=== PATIENT | male | born 1975 | race Caucasian/White ===

== ENCOUNTER 2018-11-24 04:22 | Emergency (ER) | payer BC ==
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
[2018-11-24 05:03] LABS: BASOPHIL % 0.3 % (0.0-0.4); Basophil (Absolute #) 0.02 (0-0.4); Eosinophil % 2.9 % (0.00-5.0); Eosinophil (Absolute #) 0.19 (0-0.5); Granulocyte Absolute (ANC) 3.33 (1.4-6.9); Granulocytes % 50.7 % (36.0-66.0); Hematocrit 51.5 % (42-50); Hemoglobin 17.4 gm/dl (12.5-18.0); Lymphocyte (Absolute #) 2.13 (1.0-4.6); Lymphocytes % 32.5 % (24.0-44.0); Mean Cell Volume 88.3 fl (78-100); Mean Corpuscular Hemoglobin 29.8 pg (26-32); Mean Corpuscular Hgb Concent. 33.8 g/dl (32-36); Mean Platelet Volume 10.5 fl (6-9.5); Monocyte (Absolute #) 0.89 (0.0-1.3); Monocytes % 13.6 % (0.0-12.0); Platelet Count 183 K/mm3 (150-450); Red Blood Count 5.83 M/mm3 (4.1-5.6); Red Cell Distribution Width 14.6 % (11.5-14.0); White Blood Count 6.6 K/mm3 (4.0-10.5)
[2018-11-24 05:16] LABS: ALKALINE PHOSPHATASE 74 U/L (38-126); ANION GAP 12.6 MEQ/L (5-15); BLOOD UREA NITROGEN 14 mg/dL (9-20); CHLORIDE 105 mmol/L (98-107); Calcium 9.1 mg/dL (8.4-10.2); Carbon Dioxide 26 mmol/L (22-30); Glucose 101 mg/dL (74-106); MAGNESIUM 1.8 mg/dL (1.6-2.3); Potassium 3.8 mmol/L (3.5-5.1); SGOT/AST 37 U/L (17-59); SGPT/ALT 39 U/L (0-50); SODIUM 140 mmol/L (137-145); Total Protein 7.2 g/dL (6.3-8.2)
[2018-11-24] MEDS ORDERED: Zofran 4 MG/2 ML VIAL ONE (05:19)
[2018-11-24] MEDS ORDERED: MORPHINE SULFATE 2 MG INJ ONE ×2 (05:19→05:33)
[2018-11-24] MEDS ORDERED: MORPHINE SULFATE 2 MG INJ IV ONE ×2 (05:19→05:32)
[2018-11-24] MEDS ORDERED: Nitrostat 0.4 MG (ED) SL ONE ×2 (05:19→05:29)
[2018-11-24] MEDS ORDERED: Zofran 4 MG/2 ML VIAL IV ONE (05:23)
[2018-11-24 08:40] VITALS: O2SAT 97
[2018-11-24 08:58] VITALS: BP 116/74; PULSE 79
--- NOTE | 2018-11-25 08:43 | XRAY ---
Exam: AP upright portable chest film from 11/24/2018. Comparison: Two-view chest series from 12/25/2017. Indication: Chest pain, cough. Findings: The current film was obtained in a lordotic projection. The lungs are well expanded. The transverse heart size is normal. The sofi and mediastinal structures appear intact. No air space infiltrates, vascular congestion, pneumothorax, or pleural fluid is seen. No acute osseous process is seen. EKG leads are seen in place. Impression: 1. No acute cardiopulmonary process is seen, no change from 12/25/2017.
== END 2018-11-24 09:06 | disposition home or self-care (01) ==
LOC: ED 04:22
DX: M54.2 Cervicalgia (principal)
CPT/HCPCS: 36000; 36415; 71045; 80053; 83735; 84484; 85025; 85379; 93005; 96374; 96375; 96376; 99284; 99291; J2270; J2405; A9270-GY

== ENCOUNTER 2020-02-15 19:57 | Emergency (ER) | payer BC ==
[2020-02-15] MEDS ORDERED: MORPHINE SULFATE 4 MG INJ IV ONE (20:10)
[2020-02-15] MEDS ORDERED: Zofran 4 MG/2 ML VIAL IV ONE (20:10)
[2020-02-15] MEDS ORDERED: BABY ASPIRIN 81 MG CHEW PO ONE (20:10)
--- NOTE | 2020-02-15 20:10 | ERPHSYRPT ---
- History of Present Illness Time Seen by Provider: 02/15/20 20:09 Historian: patient Exam Limitations: no limitations Physician History: This is a 44-year-old overweight white male who has a history of hypertension and who has a known thoracic aortic aneurysm. He presents with sharp pain in his chest which radiates into his back. The pain in his back is more signifi cant now than earlier. Patient does not have a fever. He does not have significant shortness of breath. He has no abdominal pain. Timing/Duration: today Quality: stabbing Location: central Chest Pain Radiation: back Severity of Pain-Max: mild Severity of Pain-Current: mild Modifying Factors: Improves With: nothing Associated Symptoms: denies symptoms Prior Chest Pain/Cardiac Workup: echocardiography, stress test Nitro Today/Relief: no nitro taken today Aspirin Treatment Today: 81 mg x 1 Allergies/Adverse Reactions: No Known Drug Allergies Allergy (Unverified 02/15/20 20:17) Home Medications: Aspirin 81 gm Chew [Baby Aspirin 81 mg Chew] 1 tab PO HS 11/24/18 [History] Levothyroxine Sodium 50 Mcg [Synthroid 50 Mcg] 1 tab PO HS 11/24/18 [History] Loratadine 10 mg [Claritin 10 mg] 1 tab PO HS 11/24/18 [History] Multivitamin [Multivitamins] 1 tab PO HS 11/24/18 [History] Sertraline HCl 100 mg PO HS 11/24/18 [History] Testosterone Cypionate, Micro [Testosterone Cypionate Micro] 140 mg IM WEEKLY 11/24/18 [History] Atorvastatin Calcium 50 mg PO DAILY 02/15/20 [History] Buspirone HCl 10 mg PO BID 02/15/20 [History] Hx Tetanus, Diphtheria Vaccination/Date Given: No Hx Influenza Vaccination/Date Given: Yes Hx Pneumococcal Vaccination/Date Given: No Travel Risk - International Travel Have you traveled outside of the country in past 3 weeks: No - Coronavirus Screening Are you exhibiting any of the following symptoms?: No Close contact with a COVID-19 positive Pt in past 14-21 Days: No - Review of Systems Constitutional: No Symptoms Eyes: No Symptoms Ears, Nose, & Throat: No Symptoms Respiratory: No Symptoms Cardiac: Chest Pain Abdominal/Gastrointestinal: No Symptoms Genitourinary Symptoms: No Symptoms Musculoskeletal: Back Pain Skin: No Symptoms Neurological: No Symptoms Psychological: No Symptoms Endocrine: No Symptoms Hematologic/Lymphatic: No Symptoms Immunological/Allergic: No Symptoms All Other Systems: Reviewed and Negative - Past Medical History Pertinent Past Medical History: Yes Neurological History: No Pertinent History ENT History: No Pertinent History Cardiac History: High Cholesterol Respiratory History: No Pertinent History Endocrine Medical History: Hypothyroidism Musculoskeletal History: No Pertinent History GI Medical History: No Pertinent History History: No Pertinent History Psycho-Social History: Anxiety Male Reproductive Disorders: No Pertinent History Other Medical History: Thoracic Aortic Anerysim. Nodule on lungs - Past Surgical History Past Surgical History: Yes Neuro Surgical History: No Pertinent History Cardiac: Cardiac Catheterization Respiratory: No Pertinent History Gastrointestinal: Appendectomy Genitourinary: No Pertinent History Musculoskeletal: Orthopedic Surgery Male Surgical History: No Pertinent History Other Surgical History: Rapid plasely expansion, Right ankle surgery. - Social History Smoking Status: Never smoker Exposure to second hand smoke: No Drug Use: none Patient Lives Alone: No - Nursing Vital Signs Nursing Vital Signs: Initial Vital Signs Temperature 98.3 F 02/15/20 20:06 Pulse Rate 90 02/15/20 20:06 Respiratory Rate 20 02/15/20 20:06 Blood Pressure 142/104 02/15/20 20:06 O2 Sat by Pulse Oximetry 99 02/15/20 20:06 Pain Scale Pain Intensity [Back] 4 Pain Intensity 4 - Physical Exam General Appearance: no apparent distress, alert, anxiety, obese Eye Exam: PERRL/EOMI, eyes nml inspection Ears, Nose, Throat Exam: normal ENT inspection, moist mucous membranes Neck Exam: normal inspection, non-tender, supple, full range of motion Respiratory Exam: normal breath sounds, chest tenderness, lungs clear, No respiratory distress, No airway intact Cardiovascular Exam: regular rate/rhythm, normal heart sounds, normal peripheral pulses Gastrointestinal/Abdomen Exam: soft, normal bowel sounds, No tenderness Rectal Exam: not done Back Exam: normal inspection, normal range of motion, No CVA tenderness, No vertebral tenderness Extremity Exam: normal inspection, normal range of motion, pelvis stable Neurologic Exam: alert, oriented x 3, cooperative, exchange engineer II-XII nml as tested, normal mood/affect, nml cerebellar function, nml station & gait, sensation nml Skin Exam: normal color, warm, dry Lymphatic Exam: No adenopathy SpO2 Interpretation: normal SpO2: 99 O2 Delivery: Room Air - Course Nursing assessment & vital signs reviewed: Yes EKG Interpreted by Me: RATE (79), Sinus Rhythm, NORMAL AXIS, NORMAL INTERVALS, NORMAL QRS, NORMAL ST-T, Other (There are no acute ischemic changes on this EKG. There are no changes when compared to EKG dated 11/24/2018) Ordered Tests: Active Orders 24 hr Category Date Time Status Dynamite Reclaimer STAT Care 02/15/20 20:11 Active IV Insertion STAT Care 02/15/20 20:10 Active CHEST WITH CONTRAST [CT] Stat Exams 02/15/20 20:10 Ordered CBC W DIFF Stat Lab 02/15/20 20:40 Completed CMP Stat Lab 02/15/20 20:40 Completed D-DIMER QUANTITATIVE Stat Lab 02/15/20 20:40 Completed NT PRO BNP Stat Lab 02/15/20 20:40 Completed PROTIME WITH INR Stat Lab 02/15/20 20:40 Completed TROPONIN Q3H Lab 02/15/20 20:40 Completed TROPONIN Q3H Lab 02/15/20 23:15 Ordered TROPONIN Q3H Lab 02/16/20 02:15 Ordered TROPONIN Q3H Lab 02/16/20 05:15 Ordered TROPONIN Q3H Lab 02/16/20 08:15 Ordered Medication Summary Generic Name Dose Route Start Last Admin Trade Name Freq PRN Reason Stop Dose Admin Sodium Chloride 1,000 mls @ 100 mls/hr 02/15/20 20:15 02/15/20 21:39 Sodium Chloride 0.9% 1000 Ml IV 03/16/20 20:14 100 mls/hr .Q10H DANIEL Administration Discontinued Medications Generic Name Dose Route Start Last Admin Trade Name Freq PRN Reason Stop Dose Admin Aspirin 324 mg 02/15/20 20:10 02/15/20 20:33 Baby Aspirin 81 Mg Chew PO 02/15/20 20:11 324 mg STAT ONE Administration Morphine Sulfate 4 mg 02/15/20 20:10 02/15/20 20:32 Morphine Sulfate 4 Mg Inj IV 02/15/20 20:11 4 mg STAT ONE Administration Morphine Sulfate Confirm 02/15/20 20:28 Morphine Sulfate 4 Mg Inj Administered 02/15/20 20:29 Dose 4 mg .ROUTE .STK-MED ONE Ondansetron HCl 4 mg 02/15/20 20:10 02/15/20 20:32 Zofran 4 Mg/2 Ml Vial IV 02/15/20 20:11 4 mg STAT ONE Administration Ondansetron HCl Confirm 02/15/20 20:28 Zofran 4 Mg/2 Ml Vial Administered 02/15/20 20:29 Dose 4 mg .ROUTE .STK-MED ONE Lab/Rad Data: Laboratory Result Diagrams 02/15/20 20:40 02/15/20 20:40 Laboratory Results 02/15/20 02/15/20 02/15/20 Range/Units 20:40 20:40 20:40 WBC (4.0-10.5) K/mm3 RBC (4.1-5.6) M/mm3 Hgb (12.5-18.0) gm/dl Hct (42-50) % MCV (78-100) fl MCH (26-32) pg MCHC (32-36) g/dl RDW (11.5-14.0) % Plt Count (150-450) K/mm3 MPV (7.5-11.0) fl Gran % (36.0-66.0) % Eos # (Auto) (0-0.5) Absolute Lymphs (auto) (1.0-4.6) Absolute Monos (auto) (0.0-1.3) Lymphocytes % (24.0-44.0) % Monocytes % (0.0-12.0) % Eosinophils % (0.00-5.0) % Basophils % (0.0-0.4) % Absolute Granulocytes (1.4-6.9) Basophils # (0-0.4) PT 11.8 (8.83-12.87) SECONDS INR 1.04 (0.8-3.0) D-Dimer 280 (215-500) ng/mL Sodium 137 (137-145) mmol/L Potassium 3.8 (3.5-5.1) mmol/L Chloride 104 (98-107) mmol/L Carbon Dioxide 25 (22-30) mmol/L Anion Gap 11.0 (5-15) MEQ/L BUN 12 (9-20) mg/dL Creatinine 0.91 (0.66-1.25) mg/dL Estimated GFR > 60.0 ML/MIN Glucose 108 H (74-106) mg/dL Calcium 9.4 (8.4-10.2) mg/dL Total Bilirubin 0.90 (0.2-1.3) mg/dL AST 40 (17-59) U/L ALT 50 (0-50) U/L Alkaline Phosphatase 73 (38-126) U/L Troponin I < 0.012 (0.000-0.034) ng/mL NT-Pro-B Natriuret Pep 22.0 (0-450) pg/mL Serum Total Protein 7.4 (6.3-8.2) g/dL Albumin 4.2 (3.5-5.0) g/dL 02/14/ Range/Units 20:40 WBC 8.3 (4.0-10.5) K/mm3 RBC 6.08 H (4.1-5.6) M/mm3 Hgb 18.0 (12.5-18.0) gm/dl Hct 52.8 H (42-50) % MCV 86.8 (78-100) fl MCH 29.6 (26-32) pg MCHC 34.1 (32-36) g/dl RDW 14.4 H (11.5-14.0) % Plt Count 204 (150-450) K/mm3 MPV 11.4 H (7.5-11.0) fl Gran % 57.3 (36.0-66.0) % Eos # (Auto) 0.18 (0-0.5) Absolute Lymphs (auto) 2.44 (1.0-4.6) Absolute Monos (auto) 0.91 (0.0-1.3) Lymphocytes % 29.4 (24.0-44.0) % Monocytes % 11.0 (0.0-12.0) % Eosinophils % 2.2 (0.00-5.0) % Basophils % 0.1 (0.0-0.4) % Absolute Granulocytes 4.75 (1.4-6.9) Basophils # 0.01 (0-0.4) PT (8.83-12.87) SECONDS INR (0.8-3.0) D-Dimer (215-500) ng/mL Sodium (137-145) mmol/L Potassium (3.5-5.1) mmol/L Chloride (98-107) mmol/L Carbon Dioxide (22-30) mmol/L Anion Gap (5-15) MEQ/L BUN (9-20) mg/dL Creatinine (0.66-1.25) mg/dL Estimated GFR ML/MIN Glucose (74-106) mg/dL Calcium (8.4-10.2) mg/dL Total Bilirubin (0.2-1.3) mg/dL AST (17-59) U/L ALT (0-50) U/L Alkaline Phosphatase (38-126) U/L Troponin I (0.000-0.034) ng/mL NT-Pro-B Natriuret Pep (0-450) pg/mL Serum Total Protein (6.3-8.2) g/dL Albumin (3.5-5.0) g/dL - Progress Progress: improved, re-examined Air Movement: good Progress Note: 02/15/20 22:12 CAT scan of the chest with contrast shows negative pulmonary emboli and negative aneurysm. There is incidental 9 mm right lower lobe calcified nodule that has persisted. This was compared to a CT of the chest with contrast from [facility] on 11/04/2019. There are no new/acute findings Blood Culture(s) Obtained: No Antibiotics given: No Counseled pt/family regarding: lab results, diagnosis, need for follow-up, rad results - Departure Departure Disposition: Home Clinical Impression: Chest pain, non-cardiac, Back pain Condition: Stable Critical Care Time: No Referrals: ROSA TATUM [Primary Care Provider] - Additional Instructions: Take your medication as prescribed. Follow-up with your hand splitter and [facility] care physician as needed.
[2020-02-15] MEDS ORDERED: Sodium Chloride 0.9% 1000 ML 1,000 ML IV SCH (20:15)
[2020-02-15] MEDS ORDERED: Zofran 4 MG/2 ML VIAL ONE (20:28)
[2020-02-15] MEDS ORDERED: MORPHINE SULFATE 4 MG INJ ONE (20:28)
[2020-02-15] MEDS ORDERED: Sodium Chloride 0.9% 1000 ML 1,000 ML ONE (20:46)
[2020-02-15 20:58] LABS: Absolute Neutrophil Ct (ANC) 4.75 (1.4-6.9); BASOPHIL % 0.1 % (0.0-0.4); Basophil (Absolute #) 0.01 (0-0.4); Eosinophil % 2.2 % (0.00-5.0); Eosinophil (Absolute #) 0.18 (0-0.5); Hematocrit 52.8 % (42-50); Lymphocyte (Absolute #) 2.44 (1.0-4.6); Lymphocytes % 29.4 % (24.0-44.0); Mean Cell Volume 86.8 fl (78-100); Mean Corpuscular Hemoglobin 29.6 pg (26-32); Mean Corpuscular Hgb Concent. 34.1 g/dl (32-36); Mean Platelet Volume 11.4 fl (7.5-11.0); Monocyte (Absolute #) 0.91 (0.0-1.3); Neutrophil % 57.3 % (36.0-66.0); Platelet Count 204 K/mm3 (150-450); Red Blood Count 6.08 M/mm3 (4.1-5.6); Red Cell Distribution Width 14.4 % (11.5-14.0); White Blood Count 8.3 K/mm3 (4.0-10.5)
[2020-02-15 21:08] LABS: INR 1.04 (0.8-3.0); PROTIME 11.8 SECONDS (8.83-12.87)
[2020-02-15 21:13] LABS: ALBUMIN 4.2 g/dL (3.5-5.0); ALKALINE PHOSPHATASE 73 U/L (38-126); BLOOD UREA NITROGEN 12 mg/dL (9-20); CHLORIDE 104 mmol/L (98-107); Calcium 9.4 mg/dL (8.4-10.2); Carbon Dioxide 25 mmol/L (22-30); Creatinine 1 0.91 mg/dL (0.66-1.25); EST GLOMERULAR FILTRATION RATE > 60.0 ML/MIN; Glucose 108 mg/dL (74-106); Potassium 3.8 mmol/L (3.5-5.1); SGOT/AST 40 U/L (17-59); SGPT/ALT 50 U/L (0-50); SODIUM 137 mmol/L (137-145); Total Protein 7.4 g/dL (6.3-8.2)
[2020-02-15 21:19] VITALS: PULSE 84
[2020-02-15 22:33] VITALS: BP 105/63; O2SAT 96
--- NOTE | 2020-02-16 08:49 | XRAY ---
Indication: Chest/thoracic pain. Multiple contiguous axial images obtained through the chest using 100 cc Isovue 370 contrast and PE protocol. Comparison: Outside CTA chest from [facility] dated November 04, 2019. There is good opacification of the pulmonary arteries to include the lobar and segmental branches. No pulmonary embolus. Heart is not enlarged. Aorta is again normal in course and caliber without aneurysm/dissection. No pathologic mediastinal/hilar lymphadenopathy. Lungs inflated with stable 9 mm posterior right lower lobe subpleural noncalcified nodule. No new pulmonary mass/nodule, infiltrate, consolidation, or effusion. Bony thorax intact again with minimal degenerative changes throughout the spine. Limited upper abdomen again demonstrates mild fatty liver, 13 cm splenomegaly, and scattered colonic diverticulosis. Impression: 1. Negative pulmonary embolus/thoracic aneurysm. No acute cardiopulmonary abnormalities. 2. Stable posterior right lower lobe noncalcified nodule possibly granulomatous in this demographic. Consider follow-up per Fleischner guidelines. 3. Again incidental fatty liver, splenomegaly, and colonic diverticulosis.
== END 2020-02-15 22:33 | disposition home or self-care (01) ==
LOC: ED 19:57
DX: R07.89 Other chest pain (principal); M54.6 Pain in thoracic spine; I10 Essential (primary) hypertension; I71.2 Thoracic aortic aneurysm, without rupture; R91.8 Other nonspecific abnormal finding of lung field
CPT/HCPCS: 36000; 36415; 71260; 80053; 83880; 84484; 85025; 85379; 85610; 93041; 96374; 96375; 99284; J2270; J2405; A9270-GY

== ENCOUNTER 2020-08-23 23:19 | Emergency (ER) | payer BC ==
[2020-08-23 23:51] LABS: Absolute Neutrophil Ct (ANC) 4.56 (1.4-6.9); BASOPHIL % 0.1 % (0.0-0.4); Basophil (Absolute #) 0.01 (0-0.4); Eosinophil % 1.9 % (0.00-5.0); Eosinophil (Absolute #) 0.13 (0-0.5); Hematocrit 49.4 % (42-50); Hemoglobin 16.7 gm/dl (12.5-18.0); Lymphocyte (Absolute #) 1.38 (1.0-4.6); Lymphocytes % 19.8 % (24.0-44.0); Mean Cell Volume 85.3 fl (78-100); Mean Corpuscular Hemoglobin 28.8 pg (26-32); Mean Corpuscular Hgb Concent. 33.8 g/dl (32-36); Mean Platelet Volume 10.9 fl (7.5-11.0); Monocyte (Absolute #) 0.89 (0.0-1.3); Monocytes % 12.8 % (0.0-12.0); Neutrophil % 65.4 % (36.0-66.0); Platelet Count 189 K/mm3 (150-450); Red Blood Count 5.79 M/mm3 (4.1-5.6); Red Cell Distribution Width 15.3 % (11.5-14.0)
[2020-08-24 00:08] LABS: ALBUMIN 4.1 g/dL (3.5-5.0); ALKALINE PHOSPHATASE 66 U/L (38-126); ANION GAP 12.4 MEQ/L (5-15); BLOOD UREA NITROGEN 12 mg/dL (9-20); CHLORIDE 101 mmol/L (98-107); Calcium 9.3 mg/dL (8.4-10.2); Carbon Dioxide 28 mmol/L (22-30); Creatinine 1 1.05 mg/dL (0.66-1.25); EST GLOMERULAR FILTRATION RATE > 60.0 ML/MIN; Glucose 124 mg/dL (74-106); MAGNESIUM 1.9 mg/dL (1.6-2.3); Potassium 3.6 mmol/L (3.5-5.1); SGOT/AST 34 U/L (17-59); SGPT/ALT 30 U/L (0-50); SODIUM 137 mmol/L (137-145); Total Protein 6.8 g/dL (6.3-8.2)
--- NOTE | 2020-08-24 00:21 | ERPHSYRPT ---
- History of Present Illness Time Seen by Provider: 08/23/20 23:22 Source: patient Exam Limitations: no limitations Patient Subjective Stated Complaint: pt states, "I was laying in bed and I became sob, my throat felt really tight". Triage Nursing Assessment: pt c/o sob and tightness in the throat area, states, "it feels like bubbles up in my neck area". Pt states, "I was laying down getting ready to go to bed and it hit me all at once". Lungs clear, ant and post, pt is moving air, O2 sats 99% on rm air. Pt's throat/voice sounds scratchy, pt denies any sore throat, denies any chest pain. Pt has a dry, hacky intermittent cough. Physician History: Patient is a 45-year-old male presents to our ED with complaints of shortness of breath. Patient states he was lying in bed when symptoms started. Patient states his throat began to feel tight as a shortness of breath develop. Patient describes her symptoms as bubbles in his throat. Patient admits to a dry intermittent cough. No sore throat. No allergic reactions. Patient has no known allergies. No hives. No rash. No nausea or vomiting. No chest pain or shortness of breath. Symptoms are mild to moderate in intensity. No specific worsening improving factors. Patient voices no other complaints or concerns at this time. Timing/Duration: today Severity: moderate Modifying Factors: Improves With: nothing Associated Symptoms: shortness of breath, cough, No fever, No rash, No syncope Allergies/Adverse Reactions: No Known Drug Allergies Allergy (Verified 08/23/20 23:30) Home Medications: Aspirin 81 gm Chew [Baby Aspirin 81 mg Chew] 1 tab PO DAILY 11/24/18 [History] Levothyroxine Sodium 50 Mcg [Synthroid 50 Mcg] 1 tab PO HS 11/24/18 [History] Loratadine 10 mg [Claritin 10 mg] 1 tab PO HS 11/24/18 [History] Multivitamin [Multivitamins] 1 tab PO DAILY 11/24/18 [History] Sertraline HCl 100 mg PO HS 11/24/18 [History] Testosterone Cypionate, Micro [Testosterone Cypionate Micro] 140 mg IM WEEKLY 11/24/18 [History] Atorvastatin Calcium 50 mg PO HS 02/15/20 [History] Buspirone HCl 10 mg PO BID 02/15/20 [History] Hx Tetanus, Diphtheria Vaccination/Date Given: Yes Hx Influenza Vaccination/Date Given: Yes Hx Pneumococcal Vaccination/Date Given: No Immunizations Up to Date: Yes Travel Risk - International Travel Have you traveled outside of the country in past 3 weeks: No - Coronavirus Screening Are you exhibiting any of the following symptoms?: Yes Symptoms: Shortness of Breath Close contact with a COVID-19 positive Pt in past 14-21 Days: No - Vaccine Status Have you recieved a Covid-19 vaccination: No - Review of Systems Constitutional: No Symptoms, No Fever, No Chills Eyes: No Symptoms Ears, Nose, & Throat: No Symptoms Respiratory: No Symptoms, No Cough, No Dyspnea Cardiac: No Symptoms, No Chest Pain, No Edema, No Syncope Abdominal/Gastrointestinal: No Symptoms, No Abdominal Pain, No Nausea, No Vomiting, No Diarrhea Genitourinary Symptoms: No Symptoms, No Dysuria Musculoskeletal: No Symptoms, No Back Pain, No Neck Pain Skin: No Symptoms, No Rash Neurological: No Symptoms, No Dizziness, No Focal Weakness, No Sensory Changes Psychological: No Symptoms Endocrine: No Symptoms Hematologic/Lymphatic: No Symptoms Immunological/Allergic: No Symptoms All Other Systems: Reviewed and Negative - Past Medical History Pertinent Past Medical History: Yes Neurological History: No Pertinent History ENT History: No Pertinent History Cardiac History: High Cholesterol Respiratory History: No Pertinent History Endocrine Medical History: Hypothyroidism Musculoskeletal History: No Pertinent History GI Medical History: No Pertinent History History: No Pertinent History Psycho-Social History: Anxiety, Depression Male Reproductive Disorders: No Pertinent History Other Medical History: Thoracic Aortic Anerysim. Nodule on lungs - Past Surgical History Past Surgical History: Yes Neuro Surgical History: No Pertinent History Cardiac: Cardiac Catheterization Respiratory: No Pertinent History Gastrointestinal: Appendectomy Genitourinary: No Pertinent History Musculoskeletal: Orthopedic Surgery Male Surgical History: No Pertinent History Other Surgical History: Rapid plasely expansion, Right ankle surgery. - Social History Smoking Status: Never smoker Exposure to second hand smoke: Yes Drug Use: none Patient Lives Alone: No - Nursing Vital Signs Nursing Vital Signs: Initial Vital Signs Temperature 98.2 F 08/23/20 23:20 Pulse Rate 106 H 08/23/20 23:20 Respiratory Rate 24 08/23/20 23:20 Blood Pressure 108/82 08/23/20 23:20 O2 Sat by Pulse Oximetry 99 08/23/20 23:20 Pain Scale Pain Intensity 0 - Physical Exam General Appearance: no apparent distress, alert Eye Exam: PERRL/EOMI, eyes nml inspection Ears, Nose, Throat Exam: normal ENT inspection, TMs normal, pharynx normal, moist mucous membranes Neck Exam: normal inspection, non-tender, supple, full range of motion Respiratory Exam: normal breath sounds, lungs clear, airway intact, No respiratory distress, No diminished breath sounds, No accessory muscle use Cardiovascular Exam: regular rate/rhythm, normal heart sounds, normal peripheral pulses Gastrointestinal/Abdomen Exam: soft, normal bowel sounds, No tenderness, No mass Back Exam: normal inspection, normal range of motion, No CVA tenderness, No vertebral tenderness Extremity Exam: normal inspection, normal range of motion, pelvis stable Neurologic Exam: alert, oriented x 3, cooperative, normal mood/affect, nml cerebellar function, nml station & gait, sensation nml, No motor deficits Skin Exam: normal color, warm, dry, No rash Lymphatic Exam: No adenopathy SpO2 Interpretation: normal SpO2: 99 O2 Delivery: Room Air - Course Nursing assessment & vital signs reviewed: Yes EKG Interpreted by Me: RATE (103), Sinus Tach, NORMAL AXIS, NORMAL INTERVALS - Radiology Exams Other X-ray Interpretation: Teleradiologist Report (Soft tissue of the neck appears to be within normal limits. Airway appears patent. Normal epiglottis.) Chest X-ray Interpretation: Teleradiologist Report (X-ray chest negative for infiltrate. No consolidation. No pleural effusion no pneumothorax no cardiomegaly) Ordered Tests: Active Orders 24 hr Category Date Time Status Diagnostic Technologist STAT Care 08/23/20 23:31 Active EKG-ER Only STAT Care 08/23/20 23:30 Active IV Insertion STAT Care 08/23/20 23:30 Active Pulse Oximetry (ED) STAT Care 08/23/20 23:30 Active CHEST 1 VIEW (PORTABLE) Stat Exams 08/24/20 00:28 Taken NECK SOFT TISSUE Stat Exams 08/24/20 00:30 Taken CBC W DIFF Stat Lab 08/23/20 23:30 Completed CMP Stat Lab 08/23/20 23:30 Completed D-DIMER QUANTITATIVE Stat Lab 08/23/20 23:30 Completed MAGNESIUM Stat Lab 08/23/20 23:30 Completed TROPONIN Q3H Lab 08/23/20 23:30 Completed TROPONIN Q3H Lab 08/24/20 02:45 Ordered TROPONIN Q3H Lab 08/24/20 05:45 Ordered TROPONIN Q3H Lab 08/24/20 08:45 Ordered TROPONIN Q3H Lab 08/24/20 11:45 Ordered Flutter Therapy UD RT 08/24/20 00:57 Active Respiratory Therapy Assessment DAILY RT 08/24/20 00:52 Active Medication Summary Discontinued Medications Generic Name Dose Route Start Last Admin Trade Name Freq PRN Reason Stop Dose Admin Albuterol/Ipratropium 3 ml 08/24/20 00:26 08/24/20 00:49 Duoneb 0.5-3 Mg/3 Ml Neb IH 08/24/20 00:27 3 ml STAT ONE Administration Albuterol/Ipratropium Confirm 08/24/20 00:32 Duoneb 0.5-3 Mg/3 Ml Neb Administered 08/24/20 00:33 Dose 3 ml IH .STK-MED ONE Methylprednisolone Sodium Succinate 125 mg 08/24/20 00:26 08/24/20 00:29 Solu-Medrol 125 Mg IV 08/24/20 00:27 125 mg STAT ONE Administration Methylprednisolone Sodium Succinate Confirm 08/24/20 00:28 Solu-Medrol 125 Mg Administered 08/24/20 00:29 Dose 125 mg .ROUTE .STK-MED ONE Lab/Rad Data: Laboratory Result Diagrams 08/23/20 23:30 08/23/20 23:30 Laboratory Results 08/23/20 08/23/20 08/23/20 Range/Units 23:30 23:30 23:30 WBC (4.0-10.5) K/mm3 RBC (4.1-5.6) M/mm3 Hgb (12.5-18.0) gm/dl Hct (42-50) % MCV (78-100) fl MCH (26-32) pg MCHC (32-36) g/dl RDW (11.5-14.0) % Plt Count (150-450) K/mm3 MPV (7.5-11.0) fl Gran % (36.0-66.0) % Eos # (Auto) (0-0.5) Absolute Lymphs (auto) (1.0-4.6) Absolute Monos (auto) (0.0-1.3) Lymphocytes % (24.0-44.0) % Monocytes % (0.0-12.0) % Eosinophils % (0.00-5.0) % Basophils % (0.0-0.4) % Absolute Granulocytes (1.4-6.9) Basophils # (0-0.4) D-Dimer 377 (215-500) ng/mL Sodium 137 (137-145) mmol/L Potassium 3.6 (3.5-5.1) mmol/L Chloride 101 (98-107) mmol/L Carbon Dioxide 28 (22-30) mmol/L Anion Gap 12.4 (5-15) MEQ/L BUN 12 (9-20) mg/dL Creatinine 1.05 (0.66-1.25) mg/dL Estimated GFR > 60.0 ML/MIN Glucose 124 H (74-106) mg/dL Calcium 9.3 (8.4-10.2) mg/dL Magnesium 1.9 (1.6-2.3) mg/dL Total Bilirubin 1.10 (0.2-1.3) mg/dL AST 34 (17-59) U/L ALT 30 (0-50) U/L Alkaline Phosphatase 66 (38-126) U/L Troponin I < 0.012 (0.000-0.034) ng/mL Serum Total Protein 6.8 (6.3-8.2) g/dL Albumin 4.1 (3.5-5.0) g/dL 08/23/20 Range/Units 23:30 WBC 7.0 (4.0-10.5) K/mm3 RBC 5.79 H (4.1-5.6) M/mm3 Hgb 16.7 (12.5-18.0) gm/dl Hct 49.4 (42-50) % MCV 85.3 (78-100) fl MCH 28.8 (26-32) pg MCHC 33.8 (32-36) g/dl RDW 15.3 H (11.5-14.0) % Plt Count 189 (150-450) K/mm3 MPV 10.9 (7.5-11.0) fl Gran % 65.4 (36.0-66.0) % Eos # (Auto) 0.13 (0-0.5) Absolute Lymphs (auto) 1.38 (1.0-4.6) Absolute Monos (auto) 0.89 (0.0-1.3) Lymphocytes % 19.8 L (24.0-44.0) % Monocytes % 12.8 H (0.0-12.0) % Eosinophils % 1.9 (0.00-5.0) % Basophils % 0.1 (0.0-0.4) % Absolute Granulocytes 4.56 (1.4-6.9) Basophils # 0.01 (0-0.4) D-Dimer (215-500) ng/mL Sodium (137-145) mmol/L Potassium (3.5-5.1) mmol/L Chloride (98-107) mmol/L Carbon Dioxide (22-30) mmol/L Anion Gap (5-15) MEQ/L BUN (9-20) mg/dL Creatinine (0.66-1.25) mg/dL Estimated GFR ML/MIN Glucose (74-106) mg/dL Calcium (8.4-10.2) mg/dL Magnesium (1.6-2.3) mg/dL Total Bilirubin (0.2-1.3) mg/dL AST (17-59) U/L ALT (0-50) U/L Alkaline Phosphatase (38-126) U/L Troponin I (0.000-0.034) ng/mL Serum Total Protein (6.3-8.2) g/dL Albumin (3.5-5.0) g/dL - Progress Progress: improved Counseled pt/family regarding: lab results, diagnosis, need for follow-up, rad results - Departure Departure Disposition: Home Clinical Impression: Throat fullness, Cough Condition: Stable Critical Care Time: No Referrals: ROSA TATUM [Primary Care Provider] - Additional Instructions: Discharge/Care Plan LINDSEYAIYANA VICKERS was seen on 08/24/20 in the Emergency Room. The patient was counseled regarding Diagnosis,Lab results, Imaging studies, need for follow up and when to return to the Emergency Room. Prescriptions given: Discharge Note I have spoken with the patient and/or caregivers. I have explained the patient's condition, diagnosis and treatment plan based on the information available to me at this time. I have answered the patient's and/or caregiver's questions and addressed any concerns. The patient and/or caregivers have as good understanding of the patient's diagnosis, condition and treatment plan as can be expected at this point. The vital signs have been stable. The patient's condition is stable and appropriate for discharge from the emergency department. The patient will pursue further outpatient evaluation with the primary care physician or other designated or consulting physician as outlined in the discharge instructions. The patient and/or caregivers are agreeable to this plan of care and follow-up instructions have been explained in detail. The patient and/or caregivers have received these instruction. The patient/and or caregivers are aware that any significant change in condition or worsening of symptoms should prompt an immediate return to this or the closest emergency department or call 911. Prescriptions: Prednisone 10 mg [Deltasone 10 mg] 50 mg PO DAILY 3 Days #15 tablet Epinephrine [Epipen] 0.3 mg IM DAILY 1 Days #2 ml
[2020-08-24] MEDS ORDERED: DUONEB 0.5-3 MG/3 ml Neb IH ONE ×2 (00:26→00:32)
[2020-08-24] MEDS ORDERED: solu-MEDROL 125 MG IV ONE (00:26)
[2020-08-24] MEDS ORDERED: solu-MEDROL 125 MG ONE (00:28)
[2020-08-24 02:52] VITALS: BP 96/60; PULSE 97; O2SAT 95
--- NOTE | 2020-08-24 09:11 | XRAY ---
Indication: Short of breath. Comparison: November 24, 2018. Portable chest again demonstrates normal heart and lungs. Bony thorax intact again with minimal degenerative changes. No new/acute findings. Comment: Preliminary interpretation was made by [facility]. No critical discrepancy.
--- NOTE | 2020-08-24 09:19 | XRAY ---
Indication: Hoarseness. Difficulty swallowing. Foreign body. Comparison: None AP/lateral soft tissue neck demonstrates a 6.0 x 5.5 cm infraglottic radiopacity on the lateral view concerning for foreign body. Normal epiglottis. Cervical spine intact with mild C5-C6 degenerative changes. No other bony, articular, or soft tissue abnormalities. Comment: Preliminary interpretation was made by [facility] who does not report infraglottic radiopacity. Telephone report given to Dr. Topete in the ER at 0913 hrs. on August 24, 2020.
== END 2020-08-24 02:58 | disposition home or self-care (01) ==
LOC: ED 23:19
DX: R09.89 Other specified symptoms and signs involving the circulatory and respiratory systems (principal); R05 Cough
CPT/HCPCS: 36000; 36415; 70360; 71045; 80053; 83735; 84484; 85025; 85379; 93005; 93041; 94640; 94667; 94760; 96374; 99284; J2930; A9270-GY

== ENCOUNTER 2023-10-10 19:29 | Emergency (ER) | payer BC ==
[2023-10-10] MEDS ORDERED: XYLOCAINE 1% HCL 20 ML MDV ONE (19:36)
[2023-10-10 19:53] VITALS: RESP 18; O2SAT 95
[2023-10-10] MEDS ORDERED: Adacel Vial IM ONE (20:00)
[2023-10-10] MEDS: Adacel Vial IM ONE (20:05)
[2023-10-10] MEDS: XYLOCAINE 1% HCL 20 ML MDV IJ ONE (20:08)
--- NOTE | 2023-10-10 20:08 | ERPHSYRPT ---
- History of Present Illness Time Seen by Provider: 10/10/23 19:31 Source: patient Exam Limitations: no limitations Patient Subjective Stated Complaint: pt states he cut himself while putting his knife back in the sheath Triage Nursing Assessment: pt alert and oriented. answers questions approp. pt ambulates into room with steady gait noted. respirations nonlabored. skin warm and dry. laceration to pad of finger- lt hand 2nd digit. approx 2.5 cm with active bleeding noted Physician History: 48-year-old right-handed dominant male presented to the ER with a laceration left index finger pulp while putting back his pocket knife into that sheath prior to arrival. Applied pressure which helped with bleeding. Reports moderate intensity sharp pain with palpation and movements of the finger. Unsure about tetanus status. Allergies/Adverse Reactions: No Known Drug Allergies Allergy (Verified 10/10/23 19:53) Home Medications: Aspirin 81 gm Chew [Baby Aspirin 81 mg Chew] 1 tab PO DAILY 11/24/18 [History] Levothyroxine Sodium 50 Mcg [Synthroid 50 Mcg] 1 tab PO HS 11/24/18 [History] Loratadine 10 mg [Claritin 10 mg] 1 tab PO HS 11/24/18 [History] Multivitamin [Multivitamins] 1 tab PO DAILY 11/24/18 [History] Sertraline HCl 100 mg PO HS 11/24/18 [History] Testosterone Cypionate, Micro [Testosterone Cypionate Micro] 140 mg IM WEEKLY 11/24/18 [History] Atorvastatin Calcium 50 mg PO HS 02/15/20 [History] Buspirone HCl 10 mg PO BID 02/15/20 [History] Hx Tetanus, Diphtheria Vaccination/Date Given: No Hx Influenza Vaccination/Date Given: Yes Hx Pneumococcal Vaccination/Date Given: No Immunizations Up to Date: No Travel Risk - International Travel Have you traveled outside of the country in past 3 weeks: No - Emerging Infectious Disease Are you exhibiting symptoms associated with any current EIDs: No - Review of Systems Constitutional: No Symptoms Respiratory: No Symptoms Cardiac: No Symptoms Abdominal/Gastrointestinal: No Symptoms Musculoskeletal: Injury Skin: Skin Lesions Neurological: No Symptoms Endocrine: No Symptoms Hematologic/Lymphatic: No Symptoms Immunological/Allergic: No Symptoms - Past Medical History Pertinent Past Medical History: Yes Neurological History: No Pertinent History ENT History: No Pertinent History Cardiac History: High Cholesterol, Hypertension Respiratory History: No Pertinent History Endocrine Medical History: Hypothyroidism Musculoskeletal History: No Pertinent History GI Medical History: No Pertinent History History: No Pertinent History Psycho-Social History: Anxiety, Depression Male Reproductive Disorders: No Pertinent History Other Medical History: arotic root dilation. Nodule on lungs. testosterone inducced polycythemia - Past Surgical History Past Surgical History: Yes Neuro Surgical History: No Pertinent History Cardiac: Cardiac Catheterization Respiratory: No Pertinent History Gastrointestinal: Appendectomy Genitourinary: No Pertinent History Musculoskeletal: Orthopedic Surgery Male Surgical History: No Pertinent History Other Surgical History: Rapid plasely expansion, Right ankle surgery. - Social History Smoking Status: Never smoker Exposure to second hand smoke: Yes Drug Use: none Patient Lives Alone: No - Social Determinants of Health Will the patient participate in the screening: Declined to provide - Nursing Vital Signs Nursing Vital Signs: Initial Vital Signs Pulse Rate 77 10/10/23 19:38 Respiratory Rate 18 10/10/23 19:38 Blood Pressure 112/78 10/10/23 19:38 O2 Sat by Pulse Oximetry 95 10/10/23 19:38 Pain Scale Pain Intensity 3 - Physical Exam General Appearance: no apparent distress Eye Exam: PERRL/EOMI Neck Exam: normal inspection, full range of motion Respiratory Exam: normal breath sounds, lungs clear Cardiovascular Exam: regular rate/rhythm, normal heart sounds Extremity Exam: normal range of motion, lacerations (2.5 cm oblique laceration left index finger pulp. No obvious tendon injury. Slow oozing. Cap refill less than 3 seconds. Distal sensations intact.) Neurologic Exam: alert, oriented x 3, cooperative Skin Exam: normal color SpO2 Interpretation: normal SpO2: 95 O2 Delivery: Room Air Procedures - Laceration/Wound Repair Left Finger Time of Procedure: 20:05 Wound Location: Left, hand Wound Length (cm): 2.5 Wound's Depth, Shape: into muscle Wound Explored: clean Irrigated: Yes Hibiclens Prep: Yes Anesthesia: 1% Lidocaine Volume Anesthetic (ccs): 3 Wound Repaired With: sutures Suture Size/Type: 4-0 Number of Sutures: 5 Layer Closure?: No Sterile Dressing Applied?: Yes Splint Applied?: Yes Type of Splint Applied: Premade aluminum Ordered Tests: Medication Summary Discontinued Medications Generic Name Dose Route Start Last Admin Trade Name Freq PRN Reason Stop Dose Admin Diphtheria/Tetanus/Acell Pertussis 0.5 ml 10/10/23 19:58 Tdap --Diph,Pertuss(Acell),Tet Vac/Pf 0.5 Ml Vial IM 10/10/23 19:59 .ONCE ONE Diphtheria/Tetanus/Acell Pertussis Confirm 10/10/23 20:00 Tdap --Diph,Pertuss(Acell),Tet Vac/Pf 0.5 Ml Vial Administered 10/10/23 20:01 Dose 0.5 ml IM .STK-MED ONE Lidocaine HCl Confirm 10/10/23 19:36 Lidocaine Hcl 1% 20 Ml Mdv 20 Ml Ml Administered 10/10/23 19:37 Dose 1 ml .ROUTE .STK-MED ONE - Progress Progress: improved Progress Note: 10/10/23 20:06 48-year-old [id number] is evaluated for left index finger pulp laceration with a sharp pocket knife prior to arrival. Thoroughly cleaned, laceration is repaired. Tetanus is updated. Placed in premade aluminum splint. Offered pain medication which she does not want, supportive care recommended. Discussed signs symptoms of worsening/infection needing return to ER which she seems understanding. Counseled pt/family regarding: diagnosis, need for follow-up Medical Desision Making - Diagnostic Testing Diagnostic test were ordered, analyzed, and reviewed by me: No - Risk of complications The pt has a mod risk of morbidity or mortality based on: Need for prescription drug management, Need for minor surgical intervention in patient with know risk factors - Departure Departure Disposition: Home Clinical Impression: Finger laceration Condition: Stable Critical Care Time: No Referrals: MELISSA LOUIS DO [Primary Care Provider] - Follow up with PCP 1 day Instructions: Laceration Repair With Stitches (DC) Additional Instructions: Intermittent ice application. Tylenol/ibuprofen as needed. Keep it elevated. Avoid exertional activities. Follow-up with primary care for reevaluation, suture removal in 10 to 14 days. Return to ER for intractable pain, swelling, bluish discoloration, discharge, fever chills etc.
[2023-10-10] MEDS ORDERED: BACIGUENT PACKET ONE (20:09)
[2023-10-10] MEDS: BACIGUENT PACKET TP ONE (20:09)
[2023-10-10 20:23] VITALS: BP 121/86; PULSE 89
== END 2023-10-10 20:21 | disposition home or self-care (01) ==
LOC: ED 19:29
DX: S61.211A Laceration without foreign body of left index finger without damage to nail, initial encounter (principal); W26.0XXA Contact with knife, initial encounter; E78.5 Hyperlipidemia, unspecified; I10 Essential (primary) hypertension; Z79.899 Other long term (current) drug therapy; Z23 Encounter for immunization
CPT/HCPCS: 12001; 90471; 90715; 96372; 99283; A9270-GY

== ENCOUNTER 2024-05-31 21:12 | Observation (INO) | payer OTHER ==
--- NOTE | 2024-05-31 22:13 | XRAY ---
CLINICAL HISTORY: right side numbness COMPARISON: None. TECHNIQUE: An axial non-contrast CT scan of the brain was performed from the skull base to the high parietal region. One of the following dose-reduction techniques was utilized for this exam. Automated exposure control, adjustment of the mA and/or kV according to patient size, and use of iterative reconstruction. "CT scan performed according to ALARA principles. Automated exposure control used during the exam." FINDINGS: No major acute territorial infarction, hemorrhage or mass effects. No midline shifts or deformity. No intracerebral or extra axial hematoma. Normal CT appearance of the posterior fossa structures, namely the cerebellar hemispheres, brainstem, and cerebellar peduncles. The bony structures in the skull base are unremarkable. There are no definite calvarium fractures. The scanned paranasal sinuses are clear. IMPRESSION: 1. No major acute territorial infarction, hemorrhage or mass effects. 2. Early changes of stroke may not be detected on a CT scan. If there is a strong clinical suspicion of stroke, then an MRI with diffusion-weighted imaging is suggested. The report was ready at 10:05 PM EST, 05/31/2024 and the call was made at [phone] at 10:06 PM EST, 05/31/2024nd Tanya Peralta (Paramedics) was informed regarding the Negative stroke results. She confirmed that she'd inform Dr Schuster. Electronically Signed by: Jacob Bruce MD. (05/31/2024 22:09:05 EDT)
[2024-05-31] MEDS ORDERED: Sodium Chloride 0.9% 1000 ML 1,000 ML ONE (22:33)
[2024-05-31] MEDS: Sodium Chloride 0.9% 1000 ML 1,000 ML IV STA (22:35)
[2024-05-31 22:43] LABS: Absolute Neutrophil Ct (ANC) 6.25 x10^3/uL (1.78-5.38); BASOPHIL % 0.1 % (0.2-1.2); Basophil (Absolute #) 0.01 x10^3/uL (0.01-0.08); Eosinophil % 0.5 % (0.8-7.0); Eosinophil (Absolute #) 0.04 x10^3/uL (0.04-0.54); Hematocrit 49.4 % (40.1-51.0); Hemoglobin 15.9 g/dL (13.7-17.5); IMMATURE GRAN # 0.03 x10^3u/L (0.001-0.031); IMMATURE GRAN % 0.4 % (0.001-0.429); Lymphocyte (Absolute #) 0.68 x10^3/uL (1.32-3.57); Lymphocytes % 8.6 % (21.8-53.1); Mean Cell Volume 82.1 fL (79.0-92.2); Mean Corpuscular Hemoglobin 26.4 pg (25.7-32.2); Mean Corpuscular Hgb Concent. 32.2 g/dL (32.3-36.5); Mean Platelet Volume 10.8 fL (9.4-12.4); Monocyte (Absolute #) 0.94 x10^3/uL (0.30-0.82); Monocytes % 11.8 % (5.3-12.2); Neutrophil % 78.6 % (34.0-67.9); Platelet Count 228 x10^3/uL (163-337); Red Blood Count 6.02 x10^6/uL (4.63-6.08); Red Cell Distribution Width 14.6 % (11.6-14.4)
[2024-05-31 22:57] LABS: ALBUMIN 4.3 g/dL (3.5-5.0); ANION GAP 15.1 MEQ/L (5-15); BILIRUBIN,TOTAL 1.1 mg/dL (0.2-1.3); Calcium 8.6 mg/dL (8.4-10.2); Creatinine 1 1.1 mg/dL (0.66-1.25); EST GLOMERULAR FILTRATION RATE 83.3 ML/MIN; MAGNESIUM 2.3 mg/dL (1.6-2.3); Potassium 4.2 mmol/L (3.5-5.1)
[2024-05-31 22:58] LABS: INR 0.98 (0.8-3.0); PROTIME 10.7 SECONDS (9.4-12.5); PTT 26.9 SECONDS (25.1-36.5)
[2024-05-31 23:09] LABS: NT PRO BNPII < 20.0 pg/mL (<300); TROPONIN < 0.012 ng/mL (0.000-0.033)
--- NOTE | 2024-05-31 23:16 | ERPHSYRPT ---
- History of Present Illness Time Seen by Provider: 05/31/24 21:28 Source: patient, family Exam Limitations: no limitations Patient Subjective Stated Complaint: flu a positive saturday morning. flu sx began . testosterone shot rt hip then 15 min later rt chest became numb and the feeling went down right arm. became dizzy and went to hands and knees, pt thought he was going to faint and became sweaty. slowly felt better but rt arm and rt chest remain numb and heavy feeling Triage Nursing Assessment: bilateral compliance vice president equal. pt states he has been sob since he acquired flu on . Physician History: 48-year-old male with history of ascending aortic aneurysm 4.5 cm currently on yearly observation/monitoring, diagnosed with influenza A 2 days ago currently on Tessalon Perles/azithromycin, received a shot of testosterone as a routine in the left hip and 15 minutes after patient started to feel heaviness in the right half of the chest, right arm with some numbness, feeling dizzy lightheaded and h e was about to fall down. He went to his knees, did not hit his head. He was sweaty afterwards. Patient reports still not feeling right upper extremity as his baseline with some numb feeling. No weakness. Has been having increasing central chest pain with some radiation to the back since the start of his flu symptoms 3 days ago. Continues to have nonproductive cough. Denies any difficulty ambulation/gait disturbance. Allergies/Adverse Reactions: No Known Drug Allergies Allergy (Verified 05/31/24 22:38) Home Medications: Aspirin 81 gm Chew [Baby Aspirin 81 mg Chew] 1 tab PO HS 11/24/18 [History] Levothyroxine Sodium 50 Mcg [Synthroid 50 Mcg] 3 tab PO DAILY 11/24/18 [History] Testosterone Cypionate, Micro [Testosterone Cypionate Micro] 170 mg IM WEEKLY 11/24/18 [History] Atorvastatin Calcium 50 mg PO HS 02/15/20 [History] Albuterol 2.5 mg/3 ml Neb [Proventil 2.5 mg/3 ml Neb] 1 neb PO Q8HPRN PRN 05/31/24 [History] Amlodipine Besylate 1 tab PO HS 05/31/24 [History] Azithromycin 1 tab PO DAILY 05/31/24 [History] Benzonatate 1 cap PO TIDPRN PRN 05/31/24 [History] Bupropion HCl Xl 150 mg [Wellbutrin XL 150 MG] 150 mg PO HS 05/31/24 [History] Escitalopram Oxalate [Lexapro] 1 tab PO HS 05/31/24 [History] Metformin HCl [Metformin ER Gastric] 500 mg PO HS 05/31/24 [History] Prednisone 20 mg [Deltasone 20 mg] 1 mg PO BID 05/31/24 [History] Hx Tetanus, Diphtheria Vaccination/Date Given: Yes Hx Influenza Vaccination/Date Given: Yes Hx Pneumococcal Vaccination/Date Given: No Immunizations Up to Date: Yes Travel Risk - International Travel Have you traveled outside of the country in past 3 weeks: No - Emerging Infectious Disease Are you exhibiting symptoms associated with any current EIDs: No Symptoms: Cough: New Onset, Fever Comment: Flu + on 05/30/24 - Review of Systems Constitutional: Fatigue Eyes: No Symptoms Ears, Nose, & Throat: Nose Congestion Respiratory: Cough Cardiac: Chest Pain Abdominal/Gastrointestinal: No Symptoms Genitourinary Symptoms: No Symptoms Musculoskeletal: Back Pain Skin: No Symptoms Neurological: Dizziness, Sensory Changes Psychological: No Symptoms Endocrine: No Symptoms Hematologic/Lymphatic: No Symptoms Immunological/Allergic: No Symptoms - Past Medical History Pertinent Past Medical History: Yes Neurological History: No Pertinent History ENT History: No Pertinent History Cardiac History: High Cholesterol, Hypertension Respiratory History: No Pertinent History Endocrine Medical History: Hypothyroidism Musculoskeletal History: No Pertinent History GI Medical History: No Pertinent History History: No Pertinent History Psycho-Social History: Anxiety, Depression Male Reproductive Disorders: No Pertinent History Other Medical History: arotic root dilation. Nodule on lungs. testosterone inducced polycythemia - Past Surgical History Past Surgical History: Yes Neuro Surgical History: No Pertinent History Cardiac: Cardiac Catheterization Respiratory: No Pertinent History Gastrointestinal: Appendectomy Genitourinary: No Pertinent History Musculoskeletal: Orthopedic Surgery Male Surgical History: No Pertinent History Other Surgical History: Rapid plasely expansion, Right ankle surgery. - Social History Smoking Status: Never smoker - Social Determinants of Health Will the patient participate in the screening: Yes Do you worry about a steady place to live?: No Do you have any problems with any of the following?: No known problems In the past 12 months,have you had to go without utilities?: No Transportation Issues: No Has anyone in your support network made you feel unsafe?: No Have you or anyone in your house had to go w/o enough food: No - Nursing Vital Signs Nursing Vital Signs: Initial Vital Signs Temperature 97.4 F 05/31/24 21:27 Pulse Rate 105 H 05/31/24 21:27 Respiratory Rate 20 05/31/24 21:27 Blood Pressure 126/89 05/31/24 21:27 O2 Sat by Pulse Oximetry 97 05/31/24 21:27 Pain Scale Pain Intensity 0 - [place] Coma Scale Best Eye Response (D[place]orah): (4) open spontaneously Best Verbal Response ([place]ah): (5) oriented Best Motor Response ([place]): (6) obeys commands [place]orah Total: 15 - Physical Exam General Appearance: no apparent distress, alert Eye Exam: bilateral eye: normal inspection, PERRL, EOMI Ears, Nose, Throat Exam: normal ENT inspection, TMs normal, pharynx normal, moist mucous membranes Neck Exam: normal inspection, non-tender, supple, full range of motion Respiratory: normal breath sounds, lungs clear Cardiovascular: regular rate/rhythm, normal heart sounds Gastrointestinal: soft, normal bowel sounds, No tenderness Back Exam: normal inspection, normal range of motion Extremity Exam: normal inspection, normal range of motion Mental Status: alert, oriented x 3, 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 Exam: normal hearing, normal speech, PERRL Coordination/Gait: normal finger to nose, normal gait, normal cerebellar function Motor/Sensory: no motor deficit, no pronator drift, negative Babinski's sign, No no sensory deficit (Mild decreased sensations of fine touch right upper extremity as compared to the left) DTR: bicep (R): 2+, bicep (L): 2+, knee (L): 2+, ankle (R): 2+ Skin Exam: normal color SpO2 Interpretation: normal SpO2: 97 O2 Delivery: Room Air - Course EKG Interpreted by Me: RATE (106), Sinus Tach, NORMAL AXIS, NORMAL INTERVALS, Q- wave, Non-specific ST Changes Ordered Tests: Active Orders 24 hr Category Date Time Status NPO (ED) STAT Care 05/31/24 21:41 Active CHEST WITH CONTRAST [CT] Stat Exams 05/31/24 22:51 Completed HEAD WITHOUT CONTRAST [CT] Stat Exams 05/31/24 21:42 Completed CBC W DIFF Stat Lab 05/31/24 22:40 Completed CMP Stat Lab 05/31/24 22:40 Completed FREE TRIODOTHYRONINE Stat Lab 05/31/24 22:30 Completed MAGNESIUM Stat Lab 05/31/24 22:40 Completed NT PRO BNPII Stat Lab 05/31/24 22:40 Completed PROTIME WITH INR Stat Lab 05/31/24 22:40 Completed PTT Stat Lab 05/31/24 22:40 Completed TROPONIN Q4H Lab 05/31/24 22:40 Completed TROPONIN Q4H Lab 06/01/24 01:45 Ordered TROPONIN Q4H Lab 06/01/24 05:45 Ordered TSH, 3RD Generation Stat Lab 05/31/24 22:30 Completed UA W/RFX UR CULTURE Stat Lab 05/31/24 23:53 Completed Medication Summary Discontinued Medications Generic Name Dose Route Start Last Admin Trade Name Freq PRN Reason Stop Dose Admin Sodium Chloride 1,000 mls @ 999 mls/hr 05/31/24 21:41 05/31/24 23:35 Sodium Chloride 0.9% 1000 Ml IV 05/31/24 22:41 Infused .Q1H1M STA Infusion Sodium Chloride Confirm 05/31/24 22:33 Sodium Chloride 0.9% 1000 Ml Administered 05/31/24 22:34 Dose 1,000 mls @ ud .ROUTE .K-MED ONE Lab/Rad Data: Laboratory Result Diagrams 05/31/24 22:40 05/31/24 22:40 Laboratory Results 05/31/24 05/31/24 05/31/24 Range/Units 23:53 22:40 22:40 WBC (4.23-9.07) x10^3/uL RBC (4.63-6.08) x10^6/uL Hgb (13.7-17.5) g/dL Hct (40.1-51.0) % MCV (79.0-92.2) fL MCH (25.7-32.2) pg MCHC (32.3-36.5) g/dL RDW (11.6-14.4) % Plt Count (163-337) x10^3/uL MPV (9.4-12.4) fL Gran % (34.0-67.9) % Immature Gran % (Auto) (0.001-0.429) % Nucleat RBC Rel Count (0.00-0.2) % Eos # (Auto) (0.04-0.54) x10^3/uL Immature Gran # (Auto) (0.001-0.031) x10^3u/L Absolute Lymphs (auto) (1.32-3.57) x10^3/uL Absolute Monos (auto) (0.30-0.82) x10^3/uL Absolute Nucleated RBC (0.00-0.012) x10^3u/L Lymphocytes % (21.8-53.1) % Monocytes % (5.3-12.2) % Eosinophils % (0.8-7.0) % Basophils % (0.2-1.2) % Absolute Granulocytes (1.78-5.38) x10^3/uL Basophils # (0.01-0.08) x10^3/uL PT 10.7 (9.4-12.5) SECONDS INR 0.98 (0.8-3.0) APTT 26.9 (25.1-36.5) SECONDS Sodium (135-145) mmol/L Potassium (3.5-5.1) mmol/L Chloride (98-107) mmol/L Carbon Dioxide (22-30) mmol/L Anion Gap (5-15) MEQ/L BUN (9-20) mg/dL Creatinine (0.66-1.25) mg/dL Estimated GFR ML/MIN Glucose (74-106) mg/dL Calcium (8.4-10.2) mg/dL Magnesium (1.6-2.3) mg/dL Total Bilirubin (0.2-1.3) mg/dL AST (17-59) U/L ALT (0-50) U/L Alkaline Phosphatase (38-126) U/L Troponin I < 0.012 (0.000-0.033) ng/mL NT-Pro-B Natriuret Pep < 20.0 (<300) pg/mL Serum Total Protein (6.3-8.2) g/dL Albumin (3.5-5.0) g/dL Free T3 pg/mL (2.77-5.27) pg/mL TSH 3rd Generation (0.470-4.680) mIU/L Urine Color Yellow (Yellow) Urine Appearance Clear (Clear) Urine pH 5.5 (4.6-8.0) Ur Specific [place] >=1.030 A (1.005-1.030) Urine Protein 30 (Negative) Urine Glucose (UA) Negative (Negative) mg/dL Urine Ketones 15 A (Negative) Urine Blood Negative (Negative) Urine Nitrite Negative (Negative) Urine Bilirubin Negative (Negative) Urine Urobilinogen 1.0 A (0.2) mg/dL Ur Leukocyte Esterase Negative (Negative) U Hyaline Cast (Auto) NONE SEEN (0-2) /LPF Urine Microscopic RBC 0-2 (0-5) /HPF Urine Microscopic WBC 0-2 (0-5) /HPF Ur Epithelial Cells None Seen (None Seen) /HPF Urine Bacteria None Seen (None Seen) /HPF Urine Culture Reflexed NO (NO) 05/31/24 05/31/24 05/31/24 Range/Units 22:40 22:40 22:30 WBC 8.0 (4.23-9.07) x10^3/uL RBC 6.02 (4.63-6.08) x10^6/uL Hgb 15.9 (13.7-17.5) g/dL Hct 49.4 (40.1-51.0) % MCV 82.1 (79.0-92.2) fL MCH 26.4 (25.7-32.2) pg MCHC 32.2 L (32.3-36.5) g/dL RDW 14.6 H (11.6-14.4) % Plt Count 228 (163-337) x10^3/uL MPV 10.8 (9.4-12.4) fL Gran % 78.6 H (34.0-67.9) % Immature Gran % (Auto) 0.4 (0.001-0.429) % Nucleat RBC Rel Count 0.0 (0.00-0.2) % Eos # (Auto) 0.04 (0.04-0.54) x10^3/uL Immature Gran # (Auto) 0.03 (0.001-0.031) x10^3u/L Absolute Lymphs (auto) 0.68 L (1.32-3.57) x10^3/uL Absolute Monos (auto) 0.94 H (0.30-0.82) x10^3/uL Absolute Nucleated RBC 0.00 (0.00-0.012) x10^3u/L Lymphocytes % 8.6 L (21.8-53.1) % Monocytes % 11.8 (5.3-12.2) % Eosinophils % 0.5 L (0.8-7.0) % Basophils % 0.1 L (0.2-1.2) % Absolute Granulocytes 6.25 H (1.78-5.38) x10^3/uL Basophils # 0.01 (0.01-0.08) x10^3/uL PT (9.4-12.5) SECONDS INR (0.8-3.0) APTT (25.1-36.5) SECONDS Sodium 139 (135-145) mmol/L Potassium 4.2 (3.5-5.1) mmol/L Chloride 103 (98-107) mmol/L Carbon Dioxide 25 (22-30) mmol/L Anion Gap 15.1 H (5-15) MEQ/L BUN 20 (9-20) mg/dL Creatinine 1.10 (0.66-1.25) mg/dL Estimated GFR 83.3 ML/MIN Glucose 125 H (74-106) mg/dL Calcium 8.6 (8.4-10.2) mg/dL Magnesium 2.3 (1.6-2.3) mg/dL Total Bilirubin 1.10 (0.2-1.3) mg/dL AST 36 (17-59) U/L ALT 33 (0-50) U/L Alkaline Phosphatase 69 (38-126) U/L Troponin I (0.000-0.033) ng/mL NT-Pro-B Natriuret Pep (<300) pg/mL Serum Total Protein 7.0 (6.3-8.2) g/dL Albumin 4.3 (3.5-5.0) g/dL Free T3 pg/mL 2.78 (2.77-5.27) pg/mL TSH 3rd Generation (0.470-4.680) mIU/L Urine Color (Yellow) Urine Appearance (Clear) Urine pH (4.6-8.0) Ur Specific [place] (1.005-1.030) Urine Protein (Negative) Urine Glucose (UA) (Negative) mg/dL Urine Ketones (Negative) Urine Blood (Negative) Urine Nitrite (Negative) Urine Bilirubin (Negative) Urine Urobilinogen (0.2) mg/dL Ur Leukocyte Esterase (Negative) U Hyaline Cast (Auto) (0-2) /LPF Urine Microscopic RBC (0-5) /HPF Urine Microscopic WBC (0-5) /HPF Ur Epithelial Cells (None Seen) /HPF Urine Bacteria (None Seen) /HPF Urine Culture Reflexed (NO) 05/31/24 Range/Units 22:30 WBC (4.23-9.07) x10^3/uL RBC (4.63-6.08) x10^6/uL Hgb (13.7-17.5) g/dL Hct (40.1-51.0) % MCV (79.0-92.2) fL MCH (25.7-32.2) pg MCHC (32.3-36.5) g/dL RDW (11.6-14.4) % Plt Count (163-337) x10^3/uL MPV (9.4-12.4) fL Gran % (34.0-67.9) % Immature Gran % (Auto) (0.001-0.429) % Nucleat RBC Rel Count (0.00-0.2) % Eos # (Auto) (0.04-0.54) x10^3/uL Immature Gran # (Auto) (0.001-0.031) x10^3u/L Absolute Lymphs (auto) (1.32-3.57) x10^3/uL Absolute Monos (auto) (0.30-0.82) x10^3/uL Absolute Nucleated RBC (0.00-0.012) x10^3u/L Lymphocytes % (21.8-53.1) % Monocytes % (5.3-12.2) % Eosinophils % (0.8-7.0) % Basophils % (0.2-1.2) % Absolute Granulocytes (1.78-5.38) x10^3/uL Basophils # (0.01-0.08) x10^3/uL PT (9.4-12.5) SECONDS INR (0.8-3.0) APTT (25.1-36.5) SECONDS Sodium (135-145) mmol/L Potassium (3.5-5.1) mmol/L Chloride (98-107) mmol/L Carbon Dioxide (22-30) mmol/L Anion Gap (5-15) MEQ/L BUN (9-20) mg/dL Creatinine (0.66-1.25) mg/dL Estimated GFR ML/MIN Glucose (74-106) mg/dL Calcium (8.4-10.2) mg/dL Magnesium (1.6-2.3) mg/dL Total Bilirubin (0.2-1.3) mg/dL AST (17-59) U/L ALT (0-50) U/L Alkaline Phosphatase (38-126) U/L Troponin I (0.000-0.033) ng/mL NT-Pro-B Natriuret Pep (<300) pg/mL Serum Total Protein (6.3-8.2) g/dL Albumin (3.5-5.0) g/dL Free T3 pg/mL (2.77-5.27) pg/mL TSH 3rd Generation 1.754 (0.470-4.680) mIU/L Urine Color (Yellow) Urine Appearance (Clear) Urine pH (4.6-8.0) Ur Specific [place] (1.005-1.030) Urine Protein (Negative) Urine Glucose (UA) (Negative) mg/dL Urine Ketones (Negative) Urine Blood (Negative) Urine Nitrite (Negative) Urine Bilirubin (Negative) Urine Urobilinogen (0.2) mg/dL Ur Leukocyte Esterase (Negative) U Hyaline Cast (Auto) (0-2) /LPF Urine Microscopic RBC (0-5) /HPF Urine Microscopic WBC (0-5) /HPF Ur Epithelial Cells (None Seen) /HPF Urine Bacteria (None Seen) /HPF Urine Culture Reflexed (NO) - Progress Progress: unchanged Progress Note: 05/31/24 23:17 48-year-old is evaluated in the ER for right sided numbness after receiving shot of testosterone and right hip with feeling dizzy and lightheaded/feeling of fainting. Patient has no focal neurodeficit except for mild decrease sensation of 5 touch in the right upper extremity. He is made stroke activated and prompt CT head is obtained which is negative for acute stroke findings, prompt [facility] neurology consult is obtained and patient has been evaluated by Dr. Meek who does not think patient's distribution is consistent with stroke, questionable concern for MS, also concerned about his chest pain and history of aneurysm which could be acute dissection. Will obtain CTA chest. Has normal white count, chemistries fairly unremarkable and negative troponins. The EKG is sinus tach with no ST elevation. Given fluids. Offered pain medication which she declined. Neurology also recommended obtaining MRI inpatient for further evaluation of stroke and also for MS. 06/01/24 01:33 CTA chest is obtained which is negative for any acute intrathoracic findings. Patient continues to have some feeling of numbness in the right upper extremity. Discussed with Dr. Wahl, reviewed history, workup, neurology recommendations to obtain MRI in the morning, agreed with admission. Counseled pt/family regarding: lab results, diagnosis, rad results Medical Desision Making - Independent Historian Additional History obtained from: Spouse - Discussion of managment Care discussed with:: specialist (Dr. Meek [facility] neurology, [facility]) Reviewed:: Test results, Need for additional workup Will see patient: in hospital - Diagnostic Testing Diagnostic test were ordered, analyzed, and reviewed by me: Yes Radiological Interpretation: Reviewed by me, Teleradiologist Report - Risk of complications The pt has a mod risk of morbidity or mortality based on: Need for prescription drug management The pt has a high risk of morbidity or mortality based on: Decision regarding hospitilization or escalation of hosp level of care - Departure Departure Disposition: Observation Clinical Impression: Paresthesia, Chest pain, Influenza A Condition: Stable Critical Care Time: No Referrals: MELISSA LOUIS DO [Primary Care Provider] - Follow up/PCP as directed
[2024-06-01 00:28] LABS: Appearance Clear (Clear); Bacteria None Seen /HPF (None Seen); Bilirubin Negative (Negative); Blood Negative (Negative); Epithelial Cells None Seen /HPF (None Seen); Glucose, Urine Negative (Negative); Hyaline Casts NONE SEEN /LPF (0-2); Ketones 15 (Negative); Leukocyte Esterase Negative (Negative); Nitrite Negative (Negative); Ph 5.5 (4.6-8.0); Protein,Urine Dip 30 (Negative); RBC 0-2 /HPF (0-5); Specific Gravity >=1.030 (1.005-1.030); WBC 0-2 /HPF (0-5)
--- NOTE | 2024-06-01 00:51 | XRAY ---
CLINICAL HISTORY: PE/DISSECTION? COMPARISON: Compared to previous study done on 02/15/2020 TECHNIQUE: Contiguous 3.[address] angiographic images of the chest were acquired with the administration of intravenous contrast. Coronal and sagittal reconstructions were obtained. ___ was administered for post-contrast images. One of these 3D techniques was utilized: Maximum Intensity Pixel (MIP), 3D Reconstructed Images, Volume Rendered Images, Surface Shaded Rendering. One of the following dose reduction techniques were utilized for this exam: Automated exposure control, adjustment of the mA and/or kV according to patient size, and use of iterative reconstruction. FINDINGS: Aorta: The thoracic aorta is normal in caliber. No evidence of aneurysm, dissection, or significant atherosclerotic changes. The aortic arch and descending thoracic aorta are unremarkable. Pulmonary Arteries: The contrast opacification of the pulmonary arteries is insufficient, thus pulmonary emboli cannot be excluded.ulmonary arteries are normal in size. No gross evidence of pulmonary embolism. Superior Vena Cava (SVC) and Inferior Vena Cava (IVC): Normal opacification and caliber. No evidence of thrombus or obstruction. Coronary Arteries: Coronary arteries are well-opacified. No significant stenosis or atherosclerotic changes. Mediastinum: No mediastinal mass or lymphadenopathy. Normal appearance of the thymus. Heart: Normal size and morphology of the heart. No pericardial effusion. Lungs: Right lung lower lobe basal posterior segment subpleural pulmonary nodule is seen with tiny calcification inside. (Otherwise lungs are clear with no evidence of consolidation, or masses. No pleural effusion or thickening. Bones: No fractures or lytic/sclerotic lesions of the visualized bony structures. Normal alignment and bone density. Soft Tissues: Normal appearance of the visualized soft tissues. No abnormal masses or fluid collections. CT cuts taken in upper abdomen tanika tiny splenic calcifcation IMPRESSION: Normal CT angiography of the chest. No evidence of significant vascular abnormalities. Right lung lower lobe basal posterior segment subpleural pulmonary nodule with tiny calcification. Electronically Signed by: Jacob Bruce MD. (06/01/2024 00:46:21 EDT)
[2024-06-01] MEDS ORDERED: PROVENTIL 2.5 MG/3 ML NEB IH PRN ×2 (03:27→04:56)
[2024-06-01] MEDS ORDERED: Tessalon Perles 100 MG PO PRN ×2 (04:56→06:08)
--- NOTE | 2024-06-01 05:30 | PCM.HP ---
History of Present Illness - Chief Complaint Chief Complaint: Paresthesia, chest pain, influenza A Date: 06/01/24 History of Present Illness: is a 48 year old male w/ 4.5 cm aortic aneurysm, HTN, HLD, hypothyroidism, hypogonadism on testosterone (complicated by polycythemia) who presents with chest discomfort and right upper ext heaviness. Patient came to ED. CTA was done and showed stable aneurysm. Patient was seen by tele-neuro who recommended that patient get admitted to observation for MRI. - Review of Systems Additional Findings: All other ROS is negative unless mentioned above. Medications & Allergies Home Medications: Home Medication List Aspirin 81 gm Chew [Baby Aspirin 81 mg Chew] 1 tab PO HS 11/24/18 [History Confirmed 05/31/24] Levothyroxine Sodium 50 Mcg [Synthroid 50 Mcg] 3 tab PO DAILY 11/24/18 [History Confirmed 05/31/24] Testosterone Cypionate, Micro [Testosterone Cypionate Micro] 170 mg IM WEEKLY 11/24/18 [History Confirmed 05/31/24] Atorvastatin Calcium 50 mg PO HS 02/15/20 [History Confirmed 05/31/24] Albuterol 2.5 mg/3 ml Neb [Proventil 2.5 mg/3 ml Neb] 1 neb PO Q8HPRN PRN 05/31/24 [History Confirmed 05/31/24] Amlodipine Besylate 1 tab PO HS 05/31/24 [History Confirmed 05/31/24] Azithromycin 1 tab PO DAILY 05/31/24 [History Confirmed 05/31/24] Benzonatate 1 cap PO TIDPRN PRN 05/31/24 [History Confirmed 05/31/24] Bupropion HCl Xl 150 mg [Wellbutrin XL 150 MG] 150 mg PO HS 05/31/24 [History Confirmed 05/31/24] Escitalopram Oxalate [Lexapro] 1 tab PO HS 05/31/24 [History Confirmed 05/31/24] Metformin HCl [Metformin ER Gastric] 500 mg PO HS 05/31/24 [History Confirmed 05/31/24] Prednisone 20 mg [Deltasone 20 mg] 1 mg PO BID 05/31/24 [History Confirmed 05/31/24] Allergies/Adverse Reactions: Allergies Allergy/AdvReac Type Severity Reaction Status Date / Time No Known Drug Allergies Allergy Verified 05/31/24 22:38 - Past Medical History Past Medical History: Yes Neurological History: No Pertinent History ENT History: No Pertinent History Cardiac History: High Cholesterol, Hypertension Respiratory History: No Pertinent History Endocrine Medical History: Hypothyroidism Musculoskelatal History: No Pertinent History GI Medical History: No Pertinent History History: No Pertinent History Pyscho-Social History: Anxiety, Depression Male Reproductive Disorders: No Pertinent History Comment: arotic root dilation. Nodule on lungs. testosterone inducced polycythemia - Past Surgical History Past Surgical History: Yes Neuro Surgical History: No Pertinent History Cardiac History: Cardiac Catheterization Respiratory Surgery: No Pertinent History GI Surgical History: Appendectomy Genitourinary Surgical Hx: No Pertinent History Musculskeletal Surgical Hx: Orthopedic Surgery Male Surgical History: No Pertinent History Other Surgical History: Rapid plasely expansion, Right ankle surgery. - Social History Smoking Status: Never smoker Exposure to second hand smoke: Yes Alcohol: None Drug Use: none - Social Determinants of Health Will the patient participate in the screening: Yes Do you worry about a steady place to live?: No Do you have any problems with any of the following?: No known problems In the past 12 months,have you had to go without utilities?: No Have you or anyone in your house had to go without enough: No Transportation Issues: No Has anyone in your support network made you feel unsafe?: No Does the patient want assistance with any of the above?: No - Physical Exam Vital Signs: Vital Signs - 24 hr Temp Pulse Resp BP BP Pulse Ox 06/01/24 03:54 97.9 F 75 134/81 97 06/01/24 03:30 97 06/01/24 03:27 75 18 97 06/01/24 02:31 97.9 F 78 18 134/81 85 L 06/01/24 02:00 18 06/01/24 01:37 97 06/01/24 01:01 88 17 118/51 94 L 06/01/24 00:30 88 18 129/88 94 L 06/01/24 00:00 84 16 132/81 97 05/31/24 23:34 89 22 124/93 98 05/31/24 23:00 102 H 20 150/94 97 05/31/24 22:30 95 H 19 129/85 99 03/16/25 22:00 93 H 17 131/100 97 05/31/24 21:53 97.8 F 97 H 16 145/95 97 05/31/24 21:50 96 H 22 145/95 97 05/31/24 21:27 97.4 F 105 H 20 126/89 97 General Appearance: no apparent distress Neurologic Exam: alert, oriented x 3 Eye Exam: PERRL/EOMI, eyes nml inspection Ears, Nose, Throat Exam: normal ENT inspection, pharynx normal, moist mucous membranes Neck Exam: normal inspection, non-tender, supple, full range of motion Respiratory Exam: normal breath sounds, chest tenderness, lungs clear Cardiovascular Exam: regular rate/rhythm, normal heart sounds, normal peripheral pulses Gastrointestinal/Abdomen Exam: soft, normal bowel sounds Extremity Exam: normal inspection Skin Exam: normal color Results - Labs Lab/Micro Results: Lab Results-Last 24 Hours 05/31/24 05/31/24 05/31/24 Range/Units 22:30 22:30 22:40 WBC 8.0 (4.23-9.07) x10^3/uL RBC 6.02 (4.63-6.08) x10^6/uL Hgb 15.9 (13.7-17.5) g/dL Hct 49.4 (40.1-51.0) % MCV 82.1 (79.0-92.2) fL MCH 26.4 (25.7-32.2) pg MCHC 32.2 L (32.3-36.5) g/dL RDW 14.6 H (11.6-14.4) % Plt Count 228 (163-337) x10^3/uL MPV 10.8 (9.4-12.4) fL Gran % 78.6 H (34.0-67.9) % Immature Gran % (Auto) 0.4 (0.001-0.429) % Nucleat RBC Rel Count 0.0 (0.00-0.2) % Eos # (Auto) 0.04 (0.04-0.54) x10^3/uL Immature Gran # (Auto) 0.03 (0.001-0.031) x10^3u/L Absolute Lymphs (auto) 0.68 L (1.32-3.57) x10^3/uL Absolute Monos (auto) 0.94 H (0.30-0.82) x10^3/uL Absolute Nucleated RBC 0.00 (0.00-0.012) x10^3u/L Lymphocytes % 8.6 L (21.8-53.1) % Monocytes % 11.8 (5.3-12.2) % Eosinophils % 0.5 L (0.8-7.0) % Basophils % 0.1 L (0.2-1.2) % Absolute Granulocytes 6.25 H (1.78-5.38) x10^3/uL Basophils # 0.01 (0.01-0.08) x10^3/uL PT (9.4-12.5) SECONDS INR (0.8-3.0) APTT (25.1-36.5) SECONDS Sodium (135-145) mmol/L Potassium (3.5-5.1) mmol/L Chloride (98-107) mmol/L Carbon Dioxide (22-30) mmol/L Anion Gap (5-15) MEQ/L BUN (9-20) mg/dL Creatinine (0.66-1.25) mg/dL Estimated GFR ML/MIN Glucose (74-106) mg/dL Calcium (8.4-10.2) mg/dL Magnesium (1.6-2.3) mg/dL Total Bilirubin (0.2-1.3) mg/dL AST (17-59) U/L ALT (0-50) U/L Alkaline Phosphatase (38-126) U/L Troponin I (0.000-0.033) ng/mL NT-Pro-B Natriuret Pep (<300) pg/mL Serum Total Protein (6.3-8.2) g/dL Albumin (3.5-5.0) g/dL Free T3 pg/mL 2.78 (2.77-5.27) pg/mL TSH 3rd Generation 1.754 (0.470-4.680) mIU/L Urine Color (Yellow) Urine Appearance (Clear) Urine pH (4.6-8.0) Ur Specific [place] (1.005-1.030) Urine Protein (Negative) Urine Glucose (UA) (Negative) mg/dL Urine Ketones (Negative) Urine Blood (Negative) Urine Nitrite (Negative) Urine Bilirubin (Negative) Urine Urobilinogen (0.2) mg/dL Ur Leukocyte Esterase (Negative) U Hyaline Cast (Auto) (0-2) /LPF Urine Microscopic RBC (0-5) /HPF Urine Microscopic WBC (0-5) /HPF Ur Epithelial Cells (None Seen) /HPF Urine Bacteria (None Seen) /HPF Urine Culture Reflexed (NO) 05/31/24 05/31/24 05/31/24 Range/Units 22:40 22:40 22:40 WBC (4.23-9.07) x10^3/uL RBC (4.63-6.08) x10^6/uL Hgb (13.7-17.5) g/dL Hct (40.1-51.0) % MCV (79.0-92.2) fL MCH (25.7-32.2) pg MCHC (32.3-36.5) g/dL RDW (11.6-14.4) % Plt Count (163-337) x10^3/uL MPV (9.4-12.4) fL Gran % (34.0-67.9) % Immature Gran % (Auto) (0.001-0.429) % Nucleat RBC Rel Count (0.00-0.2) % Eos # (Auto) (0.04-0.54) x10^3/uL Immature Gran # (Auto) (0.001-0.031) x10^3u/L Absolute Lymphs (auto) (1.32-3.57) x10^3/uL Absolute Monos (auto) (0.30-0.82) x10^3/uL Absolute Nucleated RBC (0.00-0.012) x10^3u/L Lymphocytes % (21.8-53.1) % Monocytes % (5.3-12.2) % Eosinophils % (0.8-7.0) % Basophils % (0.2-1.2) % Absolute Granulocytes (1.78-5.38) x10^3/uL Basophils # (0.01-0.08) x10^3/uL PT 10.7 (9.4-12.5) SECONDS INR 0.98 (0.8-3.0) APTT 26.9 (25.1-36.5) SECONDS Sodium 139 (135-145) mmol/L Potassium 4.2 (3.5-5.1) mmol/L Chloride 103 (98-107) mmol/L Carbon Dioxide 25 (22-30) mmol/L Anion Gap 15.1 H (5-15) MEQ/L BUN 20 (9-20) mg/dL Creatinine 1.10 (0.66-1.25) mg/dL Estimated GFR 83.3 ML/MIN Glucose 125 H (74-106) mg/dL Calcium 8.6 (8.4-10.2) mg/dL Magnesium 2.3 (1.6-2.3) mg/dL Total Bilirubin 1.10 (0.2-1.3) mg/dL AST 36 (17-59) U/L ALT 33 (0-50) U/L Alkaline Phosphatase 69 (38-126) U/L Troponin I < 0.012 (0.000-0.033) ng/mL NT-Pro-B Natriuret Pep < 20.0 (<300) pg/mL Serum Total Protein 7.0 (6.3-8.2) g/dL Albumin 4.3 (3.5-5.0) g/dL Free T3 pg/mL (2.77-5.27) pg/mL TSH 3rd Generation (0.470-4.680) mIU/L Urine Color (Yellow) Urine Appearance (Clear) Urine pH (4.6-8.0) Ur Specific [place] (1.005-1.030) Urine Protein (Negative) Urine Glucose (UA) (Negative) mg/dL Urine Ketones (Negative) Urine Blood (Negative) Urine Nitrite (Negative) Urine Bilirubin (Negative) Urine Urobilinogen (0.2) mg/dL Ur Leukocyte Esterase (Negative) U Hyaline Cast (Auto) (0-2) /LPF Urine Microscopic RBC (0-5) /HPF Urine Microscopic WBC (0-5) /HPF Ur Epithelial Cells (None Seen) /HPF Urine Bacteria (None Seen) /HPF Urine Culture Reflexed (NO) 05/31/24 06/01/24 Range/Units 23:53 01:59 WBC (4.23-9.07) x10^3/uL RBC (4.63-6.08) x10^6/uL Hgb (13.7-17.5) g/dL Hct (40.1-51.0) % MCV (79.0-92.2) fL MCH (25.7-32.2) pg MCHC (32.3-36.5) g/dL RDW (11.6-14.4) % Plt Count (163-337) x10^3/uL MPV (9.4-12.4) fL Gran % (34.0-67.9) % Immature Gran % (Auto) (0.001-0.429) % Nucleat RBC Rel Count (0.00-0.2) % Eos # (Auto) (0.04-0.54) x10^3/uL Immature Gran # (Auto) (0.001-0.031) x10^3u/L Absolute Lymphs (auto) (1.32-3.57) x10^3/uL Absolute Monos (auto) (0.30-0.82) x10^3/uL Absolute Nucleated RBC (0.00-0.012) x10^3u/L Lymphocytes % (21.8-53.1) % Monocytes % (5.3-12.2) % Eosinophils % (0.8-7.0) % Basophils % (0.2-1.2) % Absolute Granulocytes (1.78-5.38) x10^3/uL Basophils # (0.01-0.08) x10^3/uL PT (9.4-12.5) SECONDS INR (0.8-3.0) APTT (25.1-36.5) SECONDS Sodium (135-145) mmol/L Potassium (3.5-5.1) mmol/L Chloride (98-107) mmol/L Carbon Dioxide (22-30) mmol/L Anion Gap (5-15) MEQ/L BUN (9-20) mg/dL Creatinine (0.66-1.25) mg/dL Estimated GFR ML/MIN Glucose (74-106) mg/dL Calcium (8.4-10.2) mg/dL Magnesium (1.6-2.3) mg/dL Total Bilirubin (0.2-1.3) mg/dL AST (17-59) U/L ALT (0-50) U/L Alkaline Phosphatase (38-126) U/L Troponin I < 0.012 (0.000-0.033) ng/mL NT-Pro-B Natriuret Pep (<300) pg/mL Serum Total Protein (6.3-8.2) g/dL Albumin (3.5-5.0) g/dL Free T3 pg/mL (2.77-5.27) pg/mL TSH 3rd Generation (0.470-4.680) mIU/L Urine Color Yellow (Yellow) Urine Appearance Clear (Clear) Urine pH 5.5 (4.6-8.0) Ur Specific [place] >=1.030 A (1.005-1.030) Urine Protein 30 (Negative) Urine Glucose (UA) Negative (Negative) mg/dL Urine Ketones 15 A (Negative) Urine Blood Negative (Negative) Urine Nitrite Negative (Negative) Urine Bilirubin Negative (Negative) Urine Urobilinogen 1.0 A (0.2) mg/dL Ur Leukocyte Esterase Negative (Negative) U Hyaline Cast (Auto) NONE SEEN (0-2) /LPF Urine Microscopic RBC 0-2 (0-5) /HPF Urine Microscopic WBC 0-2 (0-5) /HPF Ur Epithelial Cells None Seen (None Seen) /HPF Urine Bacteria None Seen (None Seen) /HPF Urine Culture Reflexed NO (NO) - Radiology Impressions Radiology Exams & Impressions: Radiology Procedures Category Date Time Status CHEST WITH CONTRAST [CT] Stat Exams 05/31/24 22:51 Completed HEAD WITHOUT CONTRAST [CT] Stat Exams 05/31/24 21:42 Completed MRI BRAIN W/O CONTRAST [MRI] Routine Exams 06/01/24 05:06 Ordered - Other Procedures and Tests Respiratory Therapy 06/01/24 03:27 Respiratory Therapy Assessment DAILY Assessment/Plan (1) Chest pain Current Visit: Yes Status: Acute Assessment & Plan: - CTA Chest w/o acute abnromality - serial trop - EKG - TTE Code(s): R07.9 - CHEST PAIN, UNSPECIFIED (2) Paresthesia Current Visit: Yes Status: Acute Assessment & Plan: - seen by tele-neuro. could not see recs as railroad design consultant left note in physical chart. f/u recs in am. - MRI Code(s): R20.2 - PARESTHESIA OF SKIN (3) Influenza A Current Visit: Yes Status: Acute Assessment & Plan: - recently diagnosed - CXR to r/o PNA - received 3 days of azithro, dc - on steroids. start taper Code(s): J10.1 - FLU DUE TO OTH IDENT INFLUENZA VIRUS W OTH RESP MANIFEST (4) Hyperlipidemia Current Visit: Yes Status: Acute Assessment & Plan: - continue home meds Code(s): E78.5 - HYPERLIPIDEMIA, UNSPECIFIED (5) Hypertension Current Visit: Yes Status: Acute Assessment & Plan: - continue home meds Code(s): I10 - ESSENTIAL (PRIMARY) HYPERTENSION (6) Hypothyroidism Current Visit: Yes Status: Acute Code(s): E03.9 - HYPOTHYROIDISM, UNSPECIFIED (7) Polycythemia Current Visit: Yes Status: Acute Code(s): D75.1 - SECONDARY POLYCYTHEMIA (8) On deep vein thrombosis (DVT) prophylaxis Current Visit: Yes Status: Acute Assessment & Plan: - on SCDs Code(s): Z79.899 - OTHER EVENT SPECIALIST (CURRENT) DRUG THERAPY Telemedicine Encounter - Telemedicine Encounter Telemedicine Encounter: "The entirety of this encounter was performed via Telemedicine" This visit was performed using real-time audio and video connection between my location and thepatients locationwith the assistance of a surrogateat the patients location. Written or verbal consent was obtained from the patient/guardian to perform this visit [facility] technology. Any patient questions regarding the telemedicine interaction were answered.
[2024-06-01 06:37] LABS: Absolute Neutrophil Ct (ANC) 5.53 x10^3/uL (1.78-5.38); BASOPHIL % 0.1 % (0.2-1.2); Basophil (Absolute #) 0.01 x10^3/uL (0.01-0.08); Eosinophil % 0.7 % (0.8-7.0); Eosinophil (Absolute #) 0.05 x10^3/uL (0.04-0.54); Hematocrit 47.3 % (40.1-51.0); Hemoglobin 15.3 g/dL (13.7-17.5); IMMATURE GRAN # 0.03 x10^3u/L (0.001-0.031); IMMATURE GRAN % 0.4 % (0.001-0.429); Lymphocyte (Absolute #) 0.95 x10^3/uL (1.32-3.57); Mean Cell Volume 82.5 fL (79.0-92.2); Mean Corpuscular Hemoglobin 26.7 pg (25.7-32.2); Mean Corpuscular Hgb Concent. 32.3 g/dL (32.3-36.5); Mean Platelet Volume 10.6 fL (9.4-12.4); Monocyte (Absolute #) 0.75 x10^3/uL (0.30-0.82); Monocytes % 10.2 % (5.3-12.2); Neutrophil % 75.6 % (34.0-67.9); Platelet Count 216 x10^3/uL (163-337); Red Blood Count 5.73 x10^6/uL (4.63-6.08); Red Cell Distribution Width 14.5 % (11.6-14.4); White Blood Count 7.3 x10^3/uL (4.23-9.07)
[2024-06-01 08:15] VITALS: RESP 16; TEMP 98.6
[2024-06-01 08:24] LABS: ISTAT CREA 1.1 mg/dL (0.6-1.3); ISTAT K 4.6 mmol/L (3.5-4.9); ISTAT iCA 1.1 mmol/L (1.12-1.32)
--- NOTE | 2024-06-01 08:55 | XRAY ---
Indication: Pneumonia. Cough. Comparison: August 21, 2020 Portable chest remains inflated and clear. Heart not enlarged. Bony thorax intact again with degenerative changes. No new/acute findings.
[2024-06-01] MEDS: DELTASONE 20 MG PO SCH (09:37)
[2024-06-01] MEDS: SYNTHROID 75 MCG PO SCH (09:38)
[2024-06-01] MEDS ORDERED: SYNTHROID 50 MCG PO SCH ×2 (10:00)
[2024-06-01 10:03] LABS: ALBUMIN 3.8 g/dL (3.5-5.0); ANION GAP 17.2 MEQ/L (5-15); Calcium 8.2 mg/dL (8.4-10.2); Creatinine 1 0.9 mg/dL (0.66-1.25); Potassium 4.8 mmol/L (3.5-5.1); Total Protein 6.6 g/dL (6.3-8.2)
--- NOTE | 2024-06-01 11:40 | XRAY ---
Indication: Right upper extremity numbness. Normal CT head exam. Sagittal, coronal, and axial MRI brain performed without contrast using T1, T2, FLAIR, diffusion, and ADC sequences. Comparison: None Ventriculosulcal pattern appears symmetric. No acute intracranial hemorrhage, abnormal extra-axial fluid collection, or mass effect. Diffusion images negative for restricted signal. Fourth ventricle is midline without hydrocephalus. 7/8 cranial nerve complex bilaterally symmetric. Normal flow void signal within the major intracerebral circulation. Normal appearing craniocervical junction and sella turcica. Mild/moderate mucosal thickening in all paranasal sinuses. Also fluid signal in mastoid air cells, right greater than left. Impression: 1. No acute intracranial abnormalities or evidence for evolving large vessel territorial stroke. 2. Incidental pansinusitis. Fluid signal both mastoid air cells also presumed inflammatory.
--- NOTE | 2024-06-01 12:16 | XRAY ---
Indication: Right upper extremity numbness. Normal CT head. Negative MRI brain. Sagittal and axial MRI cervical spine performed without contrast using T1 and T2 weighted sequences. Comparison: None Sagittal images demonstrate lordotic straightening, positional versus paraspinal spasm. Multilevel degenerative disc dehydration signal with little to no disc space narrowing. No acute fracture, suspicious bony lesions, or abnormal bone marrow signal. Spinal cord is normal in course and caliber without signal abnormality. Normal appearing craniocervical junction. Axial images through C2-C3 disc level negative for disc herniation, spinal canal, or foraminal stenosis. At C3-C5 levels, there is right foraminal stenosis due to uncovertebral spurring. No disc herniation or canal stenosis. At C5-C6 level, there is minimal broad-based disc bulge minimally effacing thecal sac. Also bilateral foraminal stenosis due to uncovertebral spurring. No disc herniation or canal stenosis. At C6-C7 level, there is minimal broad-based disc bulge minimally effacing thecal sac. Left foraminal stenosis due to uncovertebral spurring. No disc herniation or canal stenosis. The C7-T1 level is unremarkable. Impression: Multilevel degenerative uncovertebral spurring detailed level by level. Minimal C5-C6 degenerative disc disease. Negative for disc herniation or spinal canal stenosis.
[2024-06-01 13:00] VITALS: BP 153/95; PULSE 89; O2SAT 96
--- NOTE | 2024-06-01 14:01 | PCM.DS ---
Discharge Summary Date of Admission: 06/01/24 01:48 Date of Discharge: 06/01/24 Admitting Physician: NICHELLE HARDEN MD Primary Care Provider: MELISSA LOUIS DO Allergies Allergies No Known Drug Allergies Allergy (Verified 05/31/24 22:38) Hospital Summary - Hospital Course Hospital Course: is a 48 year old male w/ 4.5 cm aortic aneurysm, HTN, HLD, hypothyroidism, hypogonadism on testosterone (complicated by polycythemia) who presents with chest discomfort and right upper ext heaviness. Patient was diagnosed with FluA tow days prior. He is on testosterone replacement therapy and had taken his testosterone shot when 15 min later his right arm/chest became numb and he experienced some dizziness. CTA was done and showed stable aneurysm. Patient was seen by tele-neuro who recommended that patient get admitted to observation for MRI. CT head with no acute fidnings. CXR with no acute findings.Chest CT with no acute findings. MRI Brain with no acute findings. MRI cervical spine with Multilevel degenerative uncovertebral spurring detailed level by level. Minimal C5-C6 degenerative disc disease. Negative for disc herniation or spinal canal stenosis. Symptoms have mostly resolved with some residual numbness to the right hand and forearm. Labs/vitals stable. Patient to follow up with neurology as OP. Discharge Note New Diagnosis: Paresthesia New Medications: none Follow Up: neuorology/pcp I spent 35 minutes [id number] with the patient on the day of discharge performing discharge exam, discussing hospital stay and discharge instructions with patient and caregivers, preparation of discharge records, prescriptions & referral forms and addressing any questions/concerns the patient had as docu mented above. - Vitals & Intake/Output Vital Signs: Vital Signs Temperature 98.6 F 06/01/24 08:00 Pulse Rate 89 06/01/24 12:00 Respiratory Rate 16 06/01/24 12:00 Blood Pressure 153/95 06/01/24 12:00 O2 Sat by Pulse Oximetry 96 06/01/24 12:00 Intake & Output: Intake & Output 05/30/24 05/31/24 06/01/24 06/02/24 11:59 11:59 11:59 11:59 Intake Total 480 1280 Balance 480 1280 Weight 143.8 kg - Lab Result Diagrams: 06/01/24 06:34 06/01/24 06:34 Lab Results-Last 24 Hrs: Lab Results-Last 24 Hours 05/31/24 05/31/24 05/31/24 Range/Units 22:30 22:30 22:40 WBC 8.0 (4.23-9.07) x10^3/uL RBC 6.02 (4.63-6.08) x10^6/uL Hgb 15.9 (13.7-17.5) g/dL Hct 49.4 (40.1-51.0) % MCV 82.1 (79.0-92.2) fL MCH 26.4 (25.7-32.2) pg MCHC 32.2 L (32.3-36.5) g/dL RDW 14.6 H (11.6-14.4) % Plt Count 228 (163-337) x10^3/uL MPV 10.8 (9.4-12.4) fL Gran % 78.6 H (34.0-67.9) % Immature Gran % (Auto) 0.4 (0.001-0.429) % Nucleat RBC Rel Count 0.0 (0.00-0.2) % Eos # (Auto) 0.04 (0.04-0.54) x10^3/uL Immature Gran # (Auto) 0.03 (0.001-0.031) x10^3u/L Absolute Lymphs (auto) 0.68 L (1.32-3.57) x10^3/uL Absolute Monos (auto) 0.94 H (0.30-0.82) x10^3/uL Absolute Nucleated RBC 0.00 (0.00-0.012) x10^3u/L Lymphocytes % 8.6 L (21.8-53.1) % Monocytes % 11.8 (5.3-12.2) % Eosinophils % 0.5 L (0.8-7.0) % Basophils % 0.1 L (0.2-1.2) % Absolute Granulocytes 6.25 H (1.78-5.38) x10^3/uL Basophils # 0.01 (0.01-0.08) x10^3/uL PT (9.4-12.5) SECONDS INR (0.8-3.0) APTT (25.1-36.5) SECONDS Sodium (135-145) mmol/L Sodium Direct (138-146) mmol/L Potassium (3.5-5.1) mmol/L Chloride (98-107) mmol/L Carbon Dioxide (22-30) mmol/L Anion Gap (5-15) MEQ/L BUN (9-20) mg/dL Venous BUN (8-26) mg/dL Creatinine (0.66-1.25) mg/dL Estimated GFR ML/MIN Glucose (74-106) mg/dL Calcium (8.4-10.2) mg/dL Ionized Calcium (1.12-1.32) mmol/L Magnesium (1.6-2.3) mg/dL Total Bilirubin (0.2-1.3) mg/dL AST (17-59) U/L ALT (0-50) U/L Alkaline Phosphatase (38-126) U/L Troponin (0.00-0.03) ng/mL Troponin I (0.000-0.033) ng/mL NT-Pro-B Natriuret Pep (<300) pg/mL Serum Total Protein (6.3-8.2) g/dL Albumin (3.5-5.0) g/dL Free T3 pg/mL 2.78 (2.77-5.27) pg/mL TSH 3rd Generation 1.754 (0.470-4.680) mIU/L Urine Color (Yellow) Urine Appearance (Clear) Urine pH (4.6-8.0) Ur Specific [place] (1.005-1.030) Urine Protein (Negative) Urine Glucose (UA) (Negative) mg/dL Urine Ketones (Negative) Urine Blood (Negative) Urine Nitrite (Negative) Urine Bilirubin (Negative) Urine Urobilinogen (0.2) mg/dL Ur Leukocyte Esterase (Negative) U Hyaline Cast (Auto) (0-2) /LPF Urine Microscopic RBC (0-5) /HPF Urine Microscopic WBC (0-5) /HPF Ur Epithelial Cells (None Seen) /HPF Urine Bacteria (None Seen) /HPF Urine Culture Reflexed (NO) 05/31/24 05/31/24 05/31/24 Range/Units 22:40 22:40 22:40 WBC (4.23-9.07) x10^3/uL RBC (4.63-6.08) x10^6/uL Hgb (13.7-17.5) g/dL Hct (40.1-51.0) % MCV (79.0-92.2) fL MCH (25.7-32.2) pg MCHC (32.3-36.5) g/dL RDW (11.6-14.4) % Plt Count (163-337) x10^3/uL MPV (9.4-12.4) fL Gran % (34.0-67.9) % Immature Gran % (Auto) (0.001-0.429) % Nucleat RBC Rel Count (0.00-0.2) % Eos # (Auto) (0.04-0.54) x10^3/uL Immature Gran # (Auto) (0.001-0.031) x10^3u/L Absolute Lymphs (auto) (1.32-3.57) x10^3/uL Absolute Monos (auto) (0.30-0.82) x10^3/uL Absolute Nucleated RBC (0.00-0.012) x10^3u/L Lymphocytes % (21.8-53.1) % Monocytes % (5.3-12.2) % Eosinophils % (0.8-7.0) % Basophils % (0.2-1.2) % Absolute Granulocytes (1.78-5.38) x10^3/uL Basophils # (0.01-0.08) x10^3/uL PT 10.7 (9.4-12.5) SECONDS INR 0.98 (0.8-3.0) APTT 26.9 (25.1-36.5) SECONDS Sodium 139 (135-145) mmol/L Sodium Direct (138-146) mmol/L Potassium 4.2 (3.5-5.1) mmol/L Chloride 103 (98-107) mmol/L Carbon Dioxide 25 (22-30) mmol/L Anion Gap 15.1 H (5-15) MEQ/L BUN 20 (9-20) mg/dL Venous BUN (8-26) mg/dL Creatinine 1.10 (0.66-1.25) mg/dL Estimated GFR 83.3 ML/MIN Glucose 125 H (74-106) mg/dL Calcium 8.6 (8.4-10.2) mg/dL Ionized Calcium (1.12-1.32) mmol/L Magnesium 2.3 (1.6-2.3) mg/dL Total Bilirubin 1.10 (0.2-1.3) mg/dL AST 36 (17-59) U/L ALT 33 (0-50) U/L Alkaline Phosphatase 69 (38-126) U/L Troponin (0.00-0.03) ng/mL Troponin I < 0.012 (0.000-0.033) ng/mL NT-Pro-B Natriuret Pep < 20.0 (<300) pg/mL Serum Total Protein 7.0 (6.3-8.2) g/dL Albumin 4.3 (3.5-5.0) g/dL Free T3 pg/mL (2.77-5.27) pg/mL TSH 3rd Generation (0.470-4.680) mIU/L Urine Color (Yellow) Urine Appearance (Clear) Urine pH (4.6-8.0) Ur Specific [place] (1.005-1.030) Urine Protein (Negative) Urine Glucose (UA) (Negative) mg/dL Urine Ketones (Negative) Urine Blood (Negative) Urine Nitrite (Negative) Urine Bilirubin (Negative) Urine Urobilinogen (0.2) mg/dL Ur Leukocyte Esterase (Negative) U Hyaline Cast (Auto) (0-2) /LPF Urine Microscopic RBC (0-5) /HPF Urine Microscopic WBC (0-5) /HPF Ur Epithelial Cells (None Seen) /HPF Urine Bacteria (None Seen) /HPF Urine Culture Reflexed (NO) 05/31/24 06/01/24 06/01/24 Range/Units 23:53 01:59 06:34 WBC (4.23-9.07) x10^3/uL RBC (4.63-6.08) x10^6/uL Hgb (13.7-17.5) g/dL Hct (40.1-51.0) % MCV (79.0-92.2) fL MCH (25.7-32.2) pg MCHC (32.3-36.5) g/dL RDW (11.6-14.4) % Plt Count (163-337) x10^3/uL MPV (9.4-12.4) fL Gran % (34.0-67.9) % Immature Gran % (Auto) (0.001-0.429) % Nucleat RBC Rel Count (0.00-0.2) % Eos # (Auto) (0.04-0.54) x10^3/uL Immature Gran # (Auto) (0.001-0.031) x10^3u/L Absolute Lymphs (auto) (1.32-3.57) x10^3/uL Absolute Monos (auto) (0.30-0.82) x10^3/uL Absolute Nucleated RBC (0.00-0.012) x10^3u/L Lymphocytes % (21.8-53.1) % Monocytes % (5.3-12.2) % Eosinophils % (0.8-7.0) % Basophils % (0.2-1.2) % Absolute Granulocytes (1.78-5.38) x10^3/uL Basophils # (0.01-0.08) x10^3/uL PT (9.4-12.5) SECONDS INR (0.8-3.0) APTT (25.1-36.5) SECONDS Sodium (135-145) mmol/L Sodium Direct (138-146) mmol/L Potassium (3.5-5.1) mmol/L Chloride (98-107) mmol/L Carbon Dioxide (22-30) mmol/L Anion Gap (5-15) MEQ/L BUN (9-20) mg/dL Venous BUN (8-26) mg/dL Creatinine (0.66-1.25) mg/dL Estimated GFR ML/MIN Glucose (74-106) mg/dL Calcium (8.4-10.2) mg/dL Ionized Calcium (1.12-1.32) mmol/L Magnesium (1.6-2.3) mg/dL Total Bilirubin (0.2-1.3) mg/dL AST (17-59) U/L ALT (0-50) U/L Alkaline Phosphatase (38-126) U/L Troponin 0.02 (0.00-0.03) ng/mL Troponin I < 0.012 Cancelled (0.000-0.033) ng/mL NT-Pro-B Natriuret Pep (<300) pg/mL Serum Total Protein (6.3-8.2) g/dL Albumin (3.5-5.0) g/dL Free T3 pg/mL (2.77-5.27) pg/mL TSH 3rd Generation (0.470-4.680) mIU/L Urine Color Yellow (Yellow) Urine Appearance Clear (Clear) Urine pH 5.5 (4.6-8.0) Ur Specific [place] >=1.030 A (1.005-1.030) Urine Protein 30 (Negative) Urine Glucose (UA) Negative (Negative) mg/dL Urine Ketones 15 A (Negative) Urine Blood Negative (Negative) Urine Nitrite Negative (Negative) Urine Bilirubin Negative (Negative) Urine Urobilinogen 1.0 A (0.2) mg/dL Ur Leukocyte Esterase Negative (Negative) U Hyaline Cast (Auto) NONE SEEN (0-2) /LPF Urine Microscopic RBC 0-2 (0-5) /HPF Urine Microscopic WBC 0-2 (0-5) /HPF Ur Epithelial Cells None Seen (None Seen) /HPF Urine Bacteria None Seen (None Seen) /HPF Urine Culture Reflexed NO (NO) 06/01/24 06/01/24 Range/Units 06:34 06:34 WBC 7.3 (4.23-9.07) x10^3/uL RBC 5.73 (4.63-6.08) x10^6/uL Hgb 15.3 (13.7-17.5) g/dL Hct 47.3 (40.1-51.0) % MCV 82.5 (79.0-92.2) fL MCH 26.7 (25.7-32.2) pg MCHC 32.3 (32.3-36.5) g/dL RDW 14.5 H (11.6-14.4) % Plt Count 216 (163-337) x10^3/uL MPV 10.6 (9.4-12.4) fL Gran % 75.6 H (34.0-67.9) % Immature Gran % (Auto) 0.4 (0.001-0.429) % Nucleat RBC Rel Count 0.0 (0.00-0.2) % Eos # (Auto) 0.05 (0.04-0.54) x10^3/uL Immature Gran # (Auto) 0.03 (0.001-0.031) x10^3u/L Absolute Lymphs (auto) 0.95 L (1.32-3.57) x10^3/uL Absolute Monos (auto) 0.75 (0.30-0.82) x10^3/uL Absolute Nucleated RBC 0.00 (0.00-0.012) x10^3u/L Lymphocytes % 13.0 L (21.8-53.1) % Monocytes % 10.2 (5.3-12.2) % Eosinophils % 0.7 L (0.8-7.0) % Basophils % 0.1 L (0.2-1.2) % Absolute Granulocytes 5.53 H (1.78-5.38) x10^3/uL Basophils # 0.01 (0.01-0.08) x10^3/uL PT (9.4-12.5) SECONDS INR (0.8-3.0) APTT (25.1-36.5) SECONDS Sodium 140 (135-145) mmol/L Sodium Direct 138 (138-146) mmol/L Potassium 4.8 (3.5-5.1) mmol/L Chloride 105 (98-107) mmol/L Carbon Dioxide 22 (22-30) mmol/L Anion Gap 17.2 H (5-15) MEQ/L BUN 15 (9-20) mg/dL Venous BUN 17 (8-26) mg/dL Creatinine 0.90 (0.66-1.25) mg/dL Estimated GFR 106.0 ML/MIN Glucose 116 H (74-106) mg/dL Calcium 8.2 L (8.4-10.2) mg/dL Ionized Calcium 1.10 L (1.12-1.32) mmol/L Magnesium (1.6-2.3) mg/dL Total Bilirubin 1.00 (0.2-1.3) mg/dL AST 35 (17-59) U/L ALT 28 (0-50) U/L Alkaline Phosphatase 62 (38-126) U/L Troponin (0.00-0.03) ng/mL Troponin I (0.000-0.033) ng/mL NT-Pro-B Natriuret Pep (<300) pg/mL Serum Total Protein 6.6 (6.3-8.2) g/dL Albumin 3.8 (3.5-5.0) g/dL Free T3 pg/mL (2.77-5.27) pg/mL TSH 3rd Generation (0.470-4.680) mIU/L Urine Color (Yellow) Urine Appearance (Clear) Urine pH (4.6-8.0) Ur Specific [place] (1.005-1.030) Urine Protein (Negative) Urine Glucose (UA) (Negative) mg/dL Urine Ketones (Negative) Urine Blood (Negative) Urine Nitrite (Negative) Urine Bilirubin (Negative) Urine Urobilinogen (0.2) mg/dL Ur Leukocyte Esterase (Negative) U Hyaline Cast (Auto) (0-2) /LPF Urine Microscopic RBC (0-5) /HPF Urine Microscopic WBC (0-5) /HPF Ur Epithelial Cells (None Seen) /HPF Urine Bacteria (None Seen) /HPF Urine Culture Reflexed (NO) - Radiology Exams Ordered Rad Exams-Entire Visit: Radiology Procedures Category Date Time Status CHEST 1 VIEW (PORTABLE) Routine Exams 06/01/24 05:42 Completed CHEST WITH CONTRAST [CT] Stat Exams 05/31/24 22:51 Completed ECHO W/2D AND DOPPLER [US] Routine Exams 06/01/24 05:38 Taken HEAD WITHOUT CONTRAST [CT] Stat Exams 05/31/24 21:42 Completed MRI BRAIN W/O CONTRAST [MRI] Routine Exams 06/01/24 05:06 Completed MRI C-SPINE W/O CONTRAST [MRI] Routine Exams 06/01/24 10:23 Completed - Procedures and Test Procedures and Tests throughout Hospitalization: Therapy Orders & Screens 06/01/24 02:59 RT Screen per Nursing Assess ONCE Comment: Protocol Order Physician Instructions: Greater than 3 points order RT Admission Screen Reason For Exam: Triggered on Admission Diagnosis: Paresthesia, chest pain, influenza A Diagnosis: Paresthesia, chest pain, influenza A Pneumonia: No Home O2: No Asthma: No CHF: No Home CPAP/BIPAP: Yes Home Nebs/MDI: Yes Total Points: 10 06/01/24 03:27 Respiratory Therapy Assessment DAILY Comment: Diagnosis: Paresthesia, chest pain, influenza A 06/01/24 05:36 EKG ROUTINE Comment: Diagnosis: Paresthesia, chest pain, influenza A Discharge Exam General Appearance: no apparent distress Neurologic Exam: alert, oriented x 3, cooperative Eye Exam: PERRL Ears, Nose, Throat Exam: normal ENT inspection Neck Exam: normal inspection Respiratory Exam: normal breath sounds, lungs clear Cardiovascular Exam: regular rate/rhythm, normal heart sounds Gastrointestinal/Abdomen Exam: soft, normal bowel sounds Male Genitalia Exam: deferred Rectal Exam: deferred Back Exam: normal inspection Extremity Exam: normal inspection Skin Exam: normal color Final Diagnosis/Problem List - Final Discharge Diagnosis/Problem (1) Paresthesia Current Visit: Yes Status: Acute Assessment & Plan: - seen by tele-neuro. could not see recs as consumer services consultant left note in physical chart. f/u recs in am. - MRI/CT cervical spine with no acute findings -PT to follow up OP with neurology Code(s): R20.2 - PARESTHESIA OF SKIN (3) Influenza A Current Visit: Yes Status: Acute Assessment & Plan: - recently diagnosed - CXR with no acute findings - received 3 days of azithro, dc - on steroids. start taper Code(s): J10.1 - FLU DUE TO OTH IDENT INFLUENZA VIRUS W OTH RESP MANIFEST (4) Hyperlipidemia Current Visit: Yes Status: Acute Assessment & Plan: - continue home meds Code(s): E78.5 - HYPERLIPIDEMIA, UNSPECIFIED (5) Hypertension Current Visit: Yes Status: Acute Assessment & Plan: - continue home meds Code(s): I10 - ESSENTIAL (PRIMARY) HYPERTENSION (6) Hypothyroidism Current Visit: Yes Status: Acute Code(s): E03.9 - HYPOTHYROIDISM, UNSPECIFIED (7) Polycythemia Current Visit: Yes Status: Acute Code(s): D75.1 - SECONDARY POLYCYTHEMIA (8) On deep vein thrombosis (DVT) prophylaxis Current Visit: Yes Status: Acute Assessment & Plan: - on SCDs (1) Chest pain Current Visit: Yes Status: Acute Assessment & Plan: - CTA Chest w/o acute abnromality - serial trop - EKG - TTE -resolved Code(s): R20.2 - PARESTHESIA OF SKIN (2) Chest pain Current Visit: Yes Status: Acute Code(s): R07.9 - CHEST PAIN, UNSPECIFIED (3) Hyperlipidemia Current Visit: Yes Status: Acute Code(s): E78.5 - HYPERLIPIDEMIA, UNSPECIFIED (4) Hypertension Current Visit: Yes Status: Acute Code(s): I10 - ESSENTIAL (PRIMARY) HYPERTENSION (5) Hypothyroidism Current Visit: Yes Status: Acute Code(s): E03.9 - HYPOTHYROIDISM, UNSPECIFIED (6) Influenza A Current Visit: Yes Status: Acute Code(s): J10.1 - FLU DUE TO OTH IDENT INFLUENZA VIRUS W OTH RESP MANIFEST (7) On deep vein thrombosis (DVT) prophylaxis Current Visit: Yes Status: Acute Code(s): Z79.899 - OTHER STACK SUPERVISOR (CURRENT) DRUG THERAPY (8) Polycythemia Current Visit: Yes Status: Acute Code(s): D75.1 - SECONDARY POLYCYTHEMIA - Discharge Discharge Date: 06/01/24 Disposition: Home, Self-Care Condition: Stable Prescriptions: Continue Testosterone Cypionate, Micro [Testosterone Cypionate Micro] 170 mg IM WEEKLY Levothyroxine Sodium 50 Mcg [Synthroid 50 Mcg] 3 tab PO DAILY Aspirin 81 gm Chew [Baby Aspirin 81 mg Chew] 1 tab PO HS Atorvastatin Calcium 50 mg PO HS Escitalopram Oxalate [Lexapro] 1 tab PO HS Amlodipine Besylate 1 tab PO HS Bupropion HCl Xl 150 mg [Wellbutrin XL 150 MG] 150 mg PO HS Metformin HCl [Metformin ER Gastric] 500 mg PO HS Prednisone 20 mg [Deltasone 20 mg] 1 mg PO BID Benzonatate 1 cap PO TIDPRN PRN PRN Reason: Cough Azithromycin 1 tab PO DAILY Albuterol 2.5 mg/3 ml Neb [Proventil 2.5 mg/3 ml Neb] 1 neb PO Q8HPRN PRN PRN Reason: Cough Follow up with: [facility] RAMESH [employer] 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
[2024-06-01] MEDS ORDERED: Lexapro PO SCH ×2 (22:00)
[2024-06-01] MEDS ORDERED: ECOTRIN 81 MG PO SCH (22:00)
[2024-06-01] MEDS ORDERED: LIPITOR 40MG PO SCH (22:00)
[2024-06-01] MEDS ORDERED: ZOCOR 20MG PO SCH (22:00)
[2024-06-01] MEDS ORDERED: Wellbutrin XL 150 MG PO SCH (22:00)
[2024-06-01] MEDS ORDERED: BABY ASPIRIN 81 MG CHEW PO SCH ×2 (22:00)
[2024-06-01] MEDS ORDERED: NORVASC 5 MG PO SCH ×2 (22:00)
[2024-06-07] MEDS ORDERED: SYNTHROID 100 MCG PO SCH (10:00)
== END 2024-06-01 14:37 | disposition home or self-care (01) ==
LOC: ED 21:12 → MED SURG 06-01 01:48
PROVIDERS: ADMIT Internal Medicine; ATTEND Internal Medicine
DX: R07.9 Chest pain, unspecified (principal); R20.2 Paresthesia of skin; J10.1 Influenza due to other identified influenza virus with other respiratory manifestations; E78.5 Hyperlipidemia, unspecified; I10 Essential (primary) hypertension; E03.9 Hypothyroidism, unspecified; D75.1 Secondary polycythemia; R42 Dizziness and giddiness; M54.6 Pain in thoracic spine; Z79.899 Other long term (current) drug therapy
CPT/HCPCS: 36415; 70450; 70551; 71045; 71260; 72141; 80047; 80053; 81001; 83735; 83880; 84443; 84481; 84484; 85025; 85610; 85730; 93005; 93306; Q3014; 93268; 99285; A9270-GY; G0378